=== PATIENT | female | born 1985 | race Caucasian/White ===

== ENCOUNTER → 2018-11-21 08:52 | Outpatient (CLI) | payer OTHER, SELFPAY ==
[2018-11-21 08:23] VITALS: BMI 35.2
[2018-11-21 09:21] LABS: Absolute Lymphocyte Count 1.32 X10^3/uL (0.83-4.51); Absolute Neutrophil Count 5.2 X10^3/uL (2.0-7.7); Basophil# 0.01 X10^3/uL; Basophil% 0.1 % (0-1); Eosinophil# 0.03 X10^3/uL; Eosinophils% 0.4 % (0-5); Hematocrit 36.9 % (37-47); Hemoglobin 12.1 g/dL (12.0-15.0); Lymphocyte # 1.32 X10^3/ul (4.0); Lymphocyte % 18.9 % (19-41); Mean Corp Hgb Conc 32.8 g/dL (32-36); Mean Corpuscular Hgb 29.4 pg (27.0-32.0); Mean Corpuscular Volume 89.8 fL (81-99); Mean Platelet Vol. 10.1 fl (6.2-12.0); Monocyte# 0.37 X10^3/uL; Monocyte% 5.3 % (0-10); NRBC Flagged by Analyzer 0 % (0-5); Neutrophil # 5.23 X10^3/uL (2.7-7.7); Neutrophil % 74.9 % (47-70); Platelet Count 186 K/mm3 (150-450); RBC Distribution Width CV 12.4 % (11.6-14.6); RBC Distribution Width SD 40.8 fl (35.1-43.9); Red Blood Count 4.11 M/mm3 (4.2-5.4)
[2018-11-21 09:30] LABS: Glucose Challenge Gest 1H 50g 146 mg/dL (70-140)
== END ==
PROVIDERS: Family Provider Family Medicine; PCP Family Medicine; Referring Provider Obstetrics & Gynecology; Visit Provider Obstetrics & Gynecology
DX: Z34.90 Encounter for supervision of normal pregnancy, unspecified, unspecified trimester (principal)
CPT/HCPCS: 36415; 82950; 85025

== ENCOUNTER → 2018-11-28 09:48 | Outpatient (CLI) | payer OTHER, SELFPAY ==
[2018-11-21 08:23] VITALS: BMI 35.2
[2018-11-28 11:51] LABS: Glucose GTT-Gestation. Fasting 76 mg/dL (<105)
[2018-11-28 11:51] LABS: Glucose GTT-Gestational 1 Hr 163 mg/dL (<190)
[2018-11-28 13:02] LABS: Glucose GTT-Gestational 2 Hr 165 mg/dL (<165)
[2018-11-28 13:39] LABS: Glucose GTT-Gestational 3 Hr 154 L (<145)
== END ==
PROVIDERS: Family Provider Family Medicine; PCP Family Medicine; Referring Provider Obstetrics & Gynecology; Visit Provider Obstetrics & Gynecology
DX: O99.810 Abnormal glucose complicating pregnancy (principal); Z3A.00 Weeks of gestation of pregnancy not specified
CPT/HCPCS: 36415; 82951; 82952

== ENCOUNTER 2018-12-22 15:30 | Outpatient (RCR) | payer OTHER, SELFPAY ==
[2018-12-05 12:10] VITALS: BMI 35.2
== END 2018-12-29 23:59 ==
LOC: DC 15:30
PROVIDERS: Family Provider Family Medicine; PCP Family Medicine; Visit Provider Obstetrics & Gynecology
DX: O24.419 Gestational diabetes mellitus in pregnancy, unspecified control (principal)
CPT/HCPCS: 97802; G0108

== ENCOUNTER → 2018-12-26 11:56 | Outpatient (CLI) | payer OTHER, SELFPAY ==
[2018-12-05 12:10] VITALS: BMI 35.2
[2018-12-19 11:06] VITALS: BMI 35.2
--- NOTE | 2018-12-26 11:58 | US_ITS ---
STUDY: SECOND AND THIRD TRIMESTER OBSTETRICAL ULTRASOUND REASON FOR EXAM: Female, 33 years old , gestational diabetes LMP: 05/05/2018 TECHNIQUE: Transabdominal TECHNICAL QUALITY: Adequate. PRIOR ULTRASOUND: None. FINDINGS: There is a single intrauterine fetus. The fetus is in a cephalic presentation. There is demonstrated cardiac activity with a heart rate of 136 bpm. There is a normal amniotic fluid volume. The largest amniotic fluid pocket measures 7.4 cm. The amniotic fluid index (JONES) is 19.2 cm. The placenta is posterior in location and is not low lying. There are Grade 1 placental changes. The cervix measures 3.7 cm in length. The adnexal regions are not visualized. BIOMETRY: BPD: 8.5 cm: 34 weeks, 2 days HC: 30.9 cm: 34 weeks, 4 days AC: 29.5 cm: 33 weeks, 4 days FL: 6.5 cm: 33 weeks, 4 days CI: 79% FL/BPD: 77% FL/HC: FL/AC: 22% HC/AC: 1.05 age by current US: 34 weeks, 0 days. ISACC by current US: 02/06/2019. Estimated weight: 2256 grams, +/- 329 grams, 46 %. Age by LMP: 33 weeks, 4 days. ISACC by LMP: 02/09/2019. US/OB Limited With Biometrics IMPRESSION: Living intrauterine of 34 weeks 0 days as described above. Electronically Signed: Cristofer Omer MD at 13:38 EDT Tel , Service support ,
== END ==
LOC: US 11:57
PROVIDERS: Family Provider Family Medicine; PCP Family Medicine; Referring Provider Obstetrics & Gynecology; Visit Provider Obstetrics & Gynecology
DX: O24.419 Gestational diabetes mellitus in pregnancy, unspecified control (principal); Z3A.00 Weeks of gestation of pregnancy not specified
CPT/HCPCS: 76816

== ENCOUNTER 2019-01-05 16:30 | Outpatient (RCR) | payer OTHER, SELFPAY ==
[2018-12-19 11:06] VITALS: BMI 35.2
[2019-01-02 08:12] VITALS: BMI 35.2
== END 2019-01-05 23:59 | disposition home or self-care (01) ==
LOC: NS 16:30
PROVIDERS: Family Provider Family Medicine; PCP Family Medicine; Visit Provider Obstetrics & Gynecology
DX: O24.419 Gestational diabetes mellitus in pregnancy, unspecified control (principal)

== ENCOUNTER 2019-01-08 09:25 | Outpatient (CLI) | payer OTHER, SELFPAY ==
[2019-01-02 08:12] VITALS: BMI 35.2
[2019-01-08 10:18] LABS: ROM Internal Control Test YES-OK TO RESULT pt. (Internal QC); ROM Patient Test Negative (Negative); Record Kit Lot#, ROM+ J8255
[2019-01-08 10:33] VITALS: BMI 33.6
[2019-01-08 12:54] LABS: Group B Strep DNA By PCR Negative (Negative); Internal Control PASS; Probe Check PASS; Specimen Processing Control PASS
--- NOTE | 2019-01-21 21:37 | OB.TRI.PN ---
Progress Notes Date of Service: 01/08/19 Progress Note: Patient presents for triage evaluation secondary to possible rupture membranes FHT: 140 moderate variability reactive no decelerations category I tracing Sam [place]: No regular contractions Assessment and plan: Possible rupture of membranes false labor negative ROM plus reactive NST, reassuring maternal and status patient discharged to home to follow-up as scheduled. See problem list details for additional plan information. Laboratory Studies: Laboratory Tests 01/08/19 01/08/19 Range/Units 09:45 09:45 Vag Amniotic Fld Detect Negative (Negative) Group B Strep DNA Negative (Negative) Specimen Comment Not Reportable Multi Select Codes - Urinary/Genital Urinary/Genital CPT Codes: 04945-60 non-stress test Interp
== END 2019-01-08 10:50 | disposition home or self-care (01) ==
LOC: WPOUT 09:30 → OBT 09:31
PROVIDERS: Family Provider Family Medicine; PCP Family Medicine; Referring Provider Obstetrics & Gynecology; Visit Provider Obstetrics & Gynecology
DX: O47.9 False labor, unspecified (principal); Z3A.00 Weeks of gestation of pregnancy not specified
CPT/HCPCS: 59025; 59050; 84112; 87081; 87653; 99218; G0378

== ENCOUNTER → 2019-01-21 14:28 | Outpatient (CLI) | payer OTHER, SELFPAY ==
[2019-01-16 08:37] VITALS: BMI 33.6
--- NOTE | 2019-01-21 14:30 | US_ITS ---
STUDY: SECOND AND THIRD TRIMESTER OBSTETRICAL ULTRASOUND REASON FOR EXAM: Female, 33 years old growth. LMP: Unknown. TECHNIQUE: Transabdominal TECHNICAL QUALITY: Adequate. PRIOR ULTRASOUND: 12/26/2018. FINDINGS: There is a single intrauterine fetus. The fetus is in a cephalic presentation. There is demonstrated cardiac activity with a heart rate of 124 bpm. There is a normal amniotic fluid volume. The largest amniotic fluid pocket measures 5.5 cm. The amniotic fluid index (JONES) is 11.6 cm. The placenta is fundal and slightly posterior in location. Placenta is not low lying. There are Grade 1 placental changes. The cervix measures 3.3 cm in length. The cervix is closed. The adnexal regions are not visualized. BIOMETRY: BPD: 9.25 cm: 37 weeks, 5 days HC: 33.56 cm: 38 weeks, 3 days AC: 33.63 cm: 37 weeks, 4 days FL: 7.24 cm: 37 weeks, 1 days CI: 82 FL/BPD: 78 FL/AC: 22 HC/AC: 1.0 age by current US: 37 weeks, 5 days. ISACC by current US: 02/06/2019. Estimated weight: 3236 grams, +/- 472 grams, 65 %. age by prior US: 37 weeks, 5 days. ISACC by prior US: 02/06/2019. Age by LMP: 37 weeks, 2 days. ISACC by LMP: 02/09/2019. ANATOMY: anatomy is limited due to advanced gestation. In addition, a some is not dedicated to evaluate anatomy. Note to be made that there is visualization of distention of the left renal pelvis up to 8mm. No other distinct anatomical abnormality seen. US/OB Limited With Biometrics IMPRESSION: Single intrauterine gestation with ultrasound age of 37 weeks and 5 days and estimated date of delivery of 02/06/2019. Vertex presentation. Fundal and posterior placenta with no previa. Normal amniotic fluid. Normal cardiac activity. Normal cervix. Enlargement of the left renal pelvis. Follow-up ultrasound recommended including the period recommended to evaluate for left hydronephrosis. Electronically Signed: Nicol Callahan MD at 4:20 EDT , Service support ,
== END ==
LOC: US 14:29
PROVIDERS: Family Provider Family Medicine; PCP Family Medicine; Referring Provider Obstetrics & Gynecology; Visit Provider Obstetrics & Gynecology
DX: O24.419 Gestational diabetes mellitus in pregnancy, unspecified control (principal); Z3A.00 Weeks of gestation of pregnancy not specified
CPT/HCPCS: 76816

== ENCOUNTER 2019-02-05 09:35 | Inpatient (IN) | payer OTHER, SELFPAY ==
[2019-01-23 08:11] VITALS: BMI 33.6
[2019-01-30 08:10] VITALS: BMI 33.6
--- NOTE | 2019-01-31 04:45 | HP.PCM_ITS ---
- Problem List (1) Abnormal ultrasound Status: Acute Comment: Enlarged left renal pelvis. Referred to [facility] for US (2) Cholelithiasis Status: Acute Qualifiers: Comment: s/p gen surg consult, no surgical intervention recommended at this time. patient symptomatic but controls with diet (3) Gestational diabetes Status: Acute Qualifiers: Comment: BS well controlled. diet only. growth us q 4 weeks (4) History of delivery Status: Acute Comment: desires TOLAC- 62% likelihood of success, plan RLTCS 02/06 (5) Status: Acute Qualifiers: Comment: genetic, carrier, and ntd screening declined. us reviewed. 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 Physical Date of Admission: 02/05/19 Intake Vital Signs 01/30/19 Body Mass Index (BMI) 33.6 01/30/19 Height 5 ft 3 in 01/30/19 Weight: 207 lb 4 oz 01/30/19 Body Mass Index (BMI) 36.7 01/30/19 Blood Pressure 126/80 H Intake Visit Reasons: 38 WEEK OB Certified Performance Technologist Required: No Is patient in pain?: No Allergies amoxicillin [Amoxicillin] Allergy (Verified 01/30/19 08:03) Hives Penicillins Allergy (Verified 01/30/19 08:03) Hives Medications doxylamine succinate 25 mg tablet 25 mg PO QHS 10/17/18 [History Confirmed 01/30/19] pyridoxine (vitamin B6) 50 mg capsule 50 mg PO TID cap 10/17/18 [History Confirmed 01/30/19] vitamin,calcium,jwkeoujb-oqsn-uqpiv acid tablet 1 tab PO DAILY 10/27/18 [History Confirmed 01/30/19] ondansetron HCl 4 mg tablet 4 mg PO Q4H #60 tab 11/21/18 [Rx Confirmed 01/30/19] doxylamine 10 mg-pyridoxine (vit B6) 10 mg tablet,delayed release 1 tab PO DAILY #30 tab 12/05/18 [Rx Confirmed 01/30/19] Vitamin B6 PO DAILY 01/08/19 [History Confirmed 01/30/19] Last Menstral Period: 05/05/18 Zika: Zika virus screening: Negative : No PFSH PFSH Medical History Cardiac murmur (Acute) Gallstones (Acute) History of gestational diabetes (Acute) Surgical History History of section (Acute ~2010) History of section (Acute ~2013) Family History Mother Diabetes Father Hypertension Social History (Updated 01/30/19 @ 08:33 by Dixie Swan MD) Smoking Status: Never smoker alcohol intake: never substance use type: does not use caffeine: Yes what type of physical activity do you participate in: walking seatbelt use: always do you feel safe at home: Yes additional social history: [employer] for [employer] Patient works for [employer] Pregancy History 3 Elective abortions Hx Para 2 Spontaneous abortions Hx # Term Pregnancies Ectopic pregnancies Hx # Pregnancies Multiple births # of living children Past Pregnancies Del. Date Name GA/Weeks Outcome Route Bth Weight Infant Gen Labor Lgth Anesthes ia Del Locatn Provider FOB Unknown 2010 [place] 39 live - full term 7lbs 2oz [facility] Dr. Ferro Unknown 2013 Pierre 39 live - full term 7lbs 4oz [facility] Dr. Aleman Delivery Date: On 10/27/18 @ 15:16 Francoise Adams distress- emergency c/s Delivery Date: On 10/27/18 @ 15:16 Francoise Adams scheduled c/s HPI 38 WEEK OB: Details: MELIDA CONNER is a 33 year old who presents for routine OB visit. OB Visit ISACC Calculator Estimated Delivery Date Method Current WG Current Estimate 02/09/19 LMP (Certain) 38w 4d Expected Delivery Route/Plan h/o cs x 2- desires TOLAC if able patient counseled regarding risks/benefits of trial of labor versus repeat . ACOG and uptodate education given to patient. 62 % likelihood of success per calculator TOLAC consent form signed: yes Labor Preferences- labor support person: Akin pain management options preferred: epidural cut cord/dad catch: yes : yes PP control planned: pill discussed possible routes of delivery and associated risks: [] special requests: [] Specific Issue/Plans flu vaccine: given tdap vaccine: given rhogam: na LARC form signed: declines movement and labor precautions reviewed. Problem list reviewed and updated with the most current plan of care details and appropriate orders placed. Relevant counseling for the gestational age provided. Continue routine care and follow up unless otherwise noted in visit notes/problem list details Initial Weight: 190 lb Date EGA Weight BP Urine Prot Glucose FHR FuHt Pres Mov CTX Dilation Effaced St Visit Note 10/27/18 25w 0d 193 lb (+3 lb) 124/82 Negative Negative 150 no vb lof good fm no regular ctx. 11/21/18 28w 4d 194 lb 4 oz (+4 lb 4 oz) 98/74 Trace Negative 140 no vb lof good fm n oregular ctx still having signficaint gall bladder attacks every ther day,very limited diet. on unisom for nauea will try zofran too, saw gen surg, will discuss therapy options 12/05/18 30w 4d 192 lb (+2 lb) 126/82 Negative Negative 145 34 Active absent no vb lof diagnosed with GDM- getting supplies. still having nausea and gall bladder issues, concerned about now being diabetic 12/19/18 32w 4d 196 lb 4 oz (+6 lb 4 oz) 122/76 Negative Negative 132 36 Active absent BS >50% WNL. Some nausea. Good FM. No VB, LOF 01/02/19 34w 4d 200 lb (+10 lb) 112/80 Negative Negative 130 40 no vb lof good fm no reg ctx. bs well controlled 01/16/19 36w 4d 200 lb 8 oz (+10 lb 8 oz) 112/78 Negative Negative 145 38 Cephalic Declined internal exam. Good FM. No VB, LOF. BS >50% WNL 01/23/19 37w 4d 203 lb (+13 lb) 108/76 Negative Negative 140 40 Cephalic no vb lof good fm no reg ctx some blood sugars eelvated all fastings within goal 01/30/19 38w 4d 207 lb 4 oz (+17 lb 4 oz) 126/80 Negative Negative 130 41 Cephalic no vb lof good fm bs well controlled plan RLTCS next week Visit Notes Visit Date: 01/30/19 ??no vb lof good fm bs well controlled plan RLTCS next week ??Dixie Swan MD on 01/30/19 Visit Date: 01/23/19 ??no vb lof good fm no reg ctx some blood sugars eelvated all fastings within goal ??Dixie Swan MD on 01/23/19 Visit Date: 01/16/19 ??Declined internal exam. Good FM. No VB, LOF. BS >50% WNL ??Veronica Grajeda NP-C on 01/16/19 Visit Date: 01/02/19 ??no vb lof good fm no reg ctx. bs well controlled ??Dixie Swan MD on 01/02/19 Visit Date: 12/19/18 ??BS >50% WNL. Some nausea. Good FM. No VB, LOF ??Veronica Grajeda NP-C on 12/19/18 Visit Date: 12/05/18 ??no vb lof diagnosed with GDM- getting supplies. still having nausea and gall bladder issues, concerned about now being diabetic ??Dixie Swan MD on 12/06/18 Visit Date: 11/21/18 ??no vb lof good fm n oregular ctx still having signficaint gall bladder attacks every ther day,very limited diet. on unisom for nauea will try zofran too, saw gen surg, will discuss therapy options ??Dixie Swan MD on 11/21/18 Visit Date: 10/27/18 ??no vb lof good fm no regular ctx. ??Dixei Swan MD on 10/27/18 ACOG First Trimester First Trimester: Desire for , Alcohol, Tobacco Cessation, Illicit/Recreational Drug/Substance Use, Intimate Partner Violence, Barriers to care, Unstable Housing, Communication Barriers, Environmental/Work Hazards, Anticipated Course of Care, Toxoplasmosis Precations, Use of Any medica tions, Sexual activity, Exercise, Dental Care, Sauna/Hot tub use, Seat Belt use, Childbirth classes/Hospital facilities, , Travel, Indications for US and Screening for Aneuploidy Second Trimester Second Trimester: Signs and Symptoms of Labor, Selecting a care provider, Reproductive Life Planning, Care Planning, Tobacco Cessation, Depression/Anxiety and Intimate Partner Violence Third Trimester Third Trimester: Pain Management Plans, Labor support person(s), Immediate Larc, Movement Monitoring and Infant Feeding Yes ; discussed Trial of Labor after Counseling or discussed Circumcision preference Diagnostics Diagnostics Diagnostics Gest Glucose Tolerance MG/DL 11/28/18 Glucose 1 Hr 50 gm 146 mg/dL (70-140) H 11/21/18 Group B Strep DNA Negative (Negative) 01/08/19 Hgb 12.1 g/dL (12.0-15.0) 11/21/18 Hct 36.9 % (37-47) L 11/21/18 Details: HIV: Urine Culture: Sequential Screen: NIPT Screen: ROS Const Reports system reviewed and no additional complaints, except as docu Card Reports system reviewed and no additional complaints, except as docu Resp Reports system reviewed and no additional complaints, except as docu GI Reports system reviewed and no additional complaints, except as docu, Reports nausea Reports system reviewed and no additional complaints, except as docu Musc Reports system reviewed and no additional complaints, except as docu Exam Const General: cooperative, healthy appearing, comfortable, anxious [facility] Head: normal to inspection Nose: external nose normal Face and sinus: normal facial exam Neck Neck: normal visual inspection, full ROM, no lymphadenopathy Thyroid: thyroid normal Chest Chest palpation & inspection: normal inspection of the chest Resp Effort & Inspection: normal respiratory effort GI Inspection: normal to inspection Palpation: soft, other (gravid uterus) Other: vertex and appropriate size for gestational age Other: Cervical Exam: Extrem General: pedal edema Results [id number] Office Urine Glucose Negative Last Edit by Melida Larson on 01/30/19 08:12 Office Urine Protein Negative Last Edit by Melida Larson on 01/30/19 08:12 Assessment & Plan Problems 1. Abnormal ultrasound O28.3 Enlarged left renal pelvis. Referred to [facility] for US 2. Diet controlled gestational diabetes mellitus (GDM) in third trimester O24.410 BS well controlled. diet only. growth us q 4 weeks 3. Calculus of gallbladder with cholecystitis without biliary obstruction, unspecified cholecystitis acuity K80.10 s/p gen surg consult, no surgical intervention recommended at this time. patient symptomatic but controls with diet 4. 38 weeks gestation of Z3A.38 genetic, carrier, and ntd screening declined. us reviewed. 5. History of delivery Z98.891 desires TOLAC- 62% likelihood of success, plan RLTCS 02/06 6. 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 Plan plan RLTCS Orders Orders: POC Urinalysis 2 Dip (Clinic) Today Coding Level of Care Code OB Routine Diagnoses Abnormal ultrasound O28.3 Diet controlled gestational diabetes mellitus (GDM) in third trimester O24.410 ??Gestational diabetes mellitus control: diet-controlled ??Trimester: third trimester Calculus of gallbladder with cholecystitis without biliary obstruction, unspecified cholecystitis acuity K80.10 ??Biliary obstruction: without biliary obstruction ??Cholecystitis acuity: unspecified acuity ??Cholecystitis presence: with cholecystitis ??Cholelithiasis location: gallbladder 38 weeks gestation of Z3A.38 ??Weeks of gestation: 38 weeks History of delivery Z98.891 Encounter for supervision of other normal in second trimester Z34.82 ??Normal : other normal ??Trimester: second trimester
[2019-02-05] VITALS (20 sets, daily range): BP systolic 104–146; BP diastolic 50–89; PULSE 62–98; RESP 16–17; TEMP 36.2–36.8; O2SAT 96–100; BMI 36.0
[2019-02-05] MEDS: Lactated Ringers 1,000 ML 999 ML IV (10:22)
[2019-02-05 10:48] LABS: Absolute Lymphocyte Count 2.01 X10^3/uL (0.83-4.51); Absolute Neutrophil Count 8.3 X10^3/uL (2.0-7.7); Basophil# 0.03 X10^3/uL; Basophil% 0.3 % (0-1); Eosinophil# 0.02 X10^3/uL; Eosinophils% 0.2 % (0-5); Hematocrit 38.3 % (37-47); Hemoglobin 12.6 g/dL (12.0-15.0); Lymphocyte # 2.01 X10^3/ul (4.0); Mean Corp Hgb Conc 32.9 g/dL (32-36); Mean Corpuscular Hgb 27.9 pg (27.0-32.0); Mean Corpuscular Volume 84.9 fL (81-99); Mean Platelet Vol. 11.2 fl (6.2-12.0); Monocyte% 7.2 % (0-10); NRBC Flagged by Analyzer 0 % (0-5); Neutrophil # 8.25 X10^3/uL (2.7-7.7); Neutrophil % 73.7 % (47-70); Platelet Count 218 K/mm3 (150-450); RBC Distribution Width CV 13.1 % (11.6-14.6); RBC Distribution Width SD 40.1 fl (35.1-43.9); Red Blood Count 4.51 M/mm3 (4.2-5.4); White Blood Count 11.2 K/mm3 (4.4-11.0)
[2019-02-05] MEDS: Lactated Ringers 1,000 ML 150 ML IV (11:16)
[2019-02-05] MEDS: Sodium Citrate/Citric Acid 30 ML UDC PO (11:51)
[2019-02-05] MEDS: Ondansetron 4 MG/2 ML Vial IV (12:09)
[2019-02-05] MEDS: Oxytocin 30 units/NS 500 ml 30 UNITS/500 ML IV.SOLN 167 UNITS IV (13:20)
[2019-02-05 13:51] LABS: Bedside Glucose 94 mg/dL (70-110)
[2019-02-05] MEDS: Methylergonovine 0.2 MG/ML Ampul IM (15:10)
[2019-02-05] MEDS: Lactated Ringers 1,000 ML 100 ML IV (16:14)
[2019-02-05] MEDS: Ketorolac 30 MG/ML Syringe IV (17:49)
--- NOTE | 2019-02-05 21:55 | PCM.OPRPT ---
Problem List (1) Abnormal ultrasound Status: Acute Comment: Enlarged left renal pelvis. UTD A1 unilateral pyelectasis. (2) Cholelithiasis Status: Acute Qualifiers: Comment: s/p gen surg consult, no surgical intervention recommended at this time. patient symptomatic but controls with diet (3) Gestational diabetes Status: Acute Qualifiers: Comment: BS well controlled. diet only. growth us q 4 weeks (4) History of delivery Status: Acute Comment: desires TOLAC- 62% likelihood of success, plan RLTCS 02/06 (5) Status: Acute Qualifiers: Comment: genetic, carrier, and ntd screening declined. us reviewed. 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 Murphy catheter was placed. The patient was placed in the dorsal supine position with leftward tilt. Patient was prepped and draped in the normal sterile fashion. Pfannenstiel skin incision was made with the scalpel and carried through to the underlying layer of fascia with the scalpel. Fascia was nicked in the midline and the incision extended laterally. The rectus bellies were dissected off superiorly and inferiorly with out complication both sharply and bluntly. The peritoneum was entered digitally. The incision was stretched and a low transverse uterine incision was made with the scalpel. The infant's head was delivered atraumatically followed by the anterior and posterior shoulders without complication the rest of the infant delivered. The cord was clamped and cut and the was handed off to awaiting nurse. The placenta was delivered spontaneously immediately following and was noted to be intact and have a three-vessel cord. The uterus was exteriorized cleared of all clots and debris, and the incision was closed in a double layer closure using #1 Monocryl. The ovaries and fallopian tubes were noted to be within normal limits. The uterus was returned to the maternal abdomen and gutters were cleared of all clots and debris. The peritoneum was closed with 3-0 Monocryl in a running fashion. Gloves were changed prior to fascial closure. Fascia was closed with 0 PDS in a running fashion. Subcutaneous tissue was copiously irrigated and the skin was closed with 3-0 Monocryl in a subcuticular fashion. Mepilex dressing was applied without complication. Patient was taken to recovery in stable condition. It was discussed with the patient that based on the clinical information obtained during this encounter, combined with her history, at this time I would recommend csections for future deliveries if further pregnancies are desired. Amniotic Membrane Rupture Type: Artificial Amniotic Fluid Description: Clear Placenta Disposition: [facility] Specimen(s) sent to pathology: none Drain: Murphy to straight drain Cord Entanglement: None Cord Vessel Description: 3 Vessels Esitmated Blood Loss (ml): 500 Gender: Male Delayed cord clamping: Yes Antibiotic Given: Ancef 2 grams IV x1 Pt instructed on risks of surgery: Bleeding, Anesthesia Risks, Infection, Injury to surrounding structure(s) including bowel and bladder - Admit VTE Documentation VTE Present on Admission: No VTE Mechan Device Prophylaxis: SCD's VTE Pharm Prophylaxis ordered?: No Multi Select Codes - Urinary/Genital Urinary/Genital CPT Codes: [address] [facility]
--- NOTE | 2019-02-05 22:28 | DCINST_ITS ---
Discharge Diet: No Restrictions Discharge Activity: May Not Drive - for 2 weeks, May not drive while taking narcotic pain medications., May Shower, May Take a Tub Bath - in 7 days May resume sexual activity in: 4-6 weeks Lifting Restrictions: 20 pounds Additional Activity Instructions:: Nothing in the vagina for 4-6 weeks. You may return to work/school in 6 weeks. Call your doctor if your incision/area has: Continuous Slow Oozing, Sudden Increased Bleeding, Increased Pain/ Swelling, Increased Redness, Foul Smelling Discharge Call your doctor if you observe: Fever of 101 or Higher, Using more than one pad per hour - for 2 hours Suture Line Care: Avoid Pulling/Pushing, Avoid Pinching/Bending Cleanse incision/area with: Keep Dressing Clean & Dry Additional Instructions: If you experience any of the following, contact your healthcare provider. * Bleeding that soaks a pad every hour for 2 hours * Fever 100.4 or higher * Unrelieved incision or abdominal pain * Swelling, redness, discharge or bleeding from your incision or episiotomy site * Your incision begins to separate * Problems urinating (including inability to urinate or burning while urinating). * Visual changes * Severe headache * Flu-like symptoms * Pain or redness in one of both of your breasts * Pain, warmth, tenderness or swelling in your legs, especially the calf area * Frequent nausea and vomiting * Symptoms of depression or anxiety If you experience any of the following, call 911 or go to the nearest Emergency Room. * Chest pain * Problems breathing * Seizure activity * Partial or complete paralysis of a body part, slurred speech, weakness or drooping of the face, or a sudden inability to walk or hold your balance Allergies/Adverse Reactions: Allergies amoxicillin [Amoxicillin] Allergy (Verified 01/30/19 08:03) Hives Penicillins Allergy (Verified 01/30/19 08:03) Hives Medications to take at Discharge Vitamin B6 50 mg PO DAILY 01/08/19 Naproxen [Naprosyn] 250 - 500 mg PO Q8H PRN PRN #30 tab 02/05/19 Oxycodone HCl/Acetaminophen [Percocet 5-325] 1 - 2 tablet PO Q6H PRN PRN 7 Days #15 tablet 02/05/19 The following prescriptions were given: Naproxen [Naprosyn] 250 - 500 mg PO Q8H PRN PRN #30 tab PRN Reason: MILD PAIN Transmission Status: Pending to [id number] Oxycodone HCl/Acetaminophen [Percocet 5-325] 1 - 2 tablet PO Q6H PRN PRN 7 Days #15 tablet PRN Reason: Pain Transmission Status: Sent to [id number] Follow-Up: Call to make an appointment with your doctor for an incision check in 1-2 weeks. You will also need a 6 week post- follow up appointment. Test results from this visit will be discussed in further detail at your follow- up appointment, if applicable. Please Follow Up With: Dixie Swan MD - Call to make an appointment for an incision check in 1-2 [phone] When: You will need a post- check in 6 weeks. Primary Care Physician: Gary Stevens MD [Primary Care Provider] -
[2019-02-06] VITALS (8 sets, daily range): BP systolic 116–139; BP diastolic 65–83; PULSE 79–101; RESP 16–18; TEMP 36.2–37.3; O2SAT 96–98
[2019-02-06] MEDS: Ketorolac 30 MG/ML Syringe IV ×3 (00:20→13:48)
[2019-02-06] MEDS: 0.9% Saline Lock 10 ML Syringe IV ×2 (00:20→06:26)
[2019-02-06 06:43] LABS: Hematocrit 35.7 % (37-47); Hemoglobin 11.6 g/dL (12.0-15.0); Mean Corp Hgb Conc 32.5 g/dL (32-36); Mean Corpuscular Hgb 27.8 pg (27.0-32.0); Mean Corpuscular Volume 85.6 fL (81-99); Mean Platelet Vol. 10.6 fl (6.2-12.0); Platelet Count 152 K/mm3 (150-450); RBC Distribution Width CV 13.1 % (11.6-14.6); Red Blood Count 4.17 M/mm3 (4.2-5.4)
[2019-02-06 07:30] LABS: Bedside Glucose 86 mg/dL (70-110)
--- NOTE | 2019-02-06 08:28 | PN.OBGYN_ITS ---
Subjective: doing well no complaints pain controlled no CP SOB N V ambulating well tolerating po lochia moderate, going well - Physical Exam Vitals/I&O's: Vital Signs Temp Pulse Resp BP Pulse Ox 97.2 F L 101 H 18 133/68 H 98 02/05/19 21:00 02/06/19 06:15 02/06/19 06:15 02/06/19 04:00 02/06/19 06:15 Oxygen Delivery Method Room Air Weight: 203 lb 7.787 oz Body Mass Index (BMI) 36.0 Intake and Output for Last 24 Hours 02/04/19 02/05/19 02/06/19 23:59 23:59 23:59 Intake Total 3059.37 / 3059.37 1900 / 1900 Output Total 2250 / 2250 1700 / 1700 Balance 809.37 / 809.37 200 / 200 General: Oriented x3 Abdomen: Soft, Non-Distended, - - FF below U. Dressing dry and intact Laboratory Results 02/05/19 10:15: WBC 11.2 H, RBC 4.51, Hgb 12.6, Hct 38.3, MCV 84.9, MCH 27.9, MCHC 32.9, RDW Std Deviation 40.1, RDW Coeff of Corey 13.1, Plt Count 218, MPV 11.2, Immature Gran % (Auto) 0.600, Neut % (Auto) 73.7 H, Lymph % (Auto) 18.0 L, [place] % (Auto) 7.2, Eos % (Auto) 0.2, Baso % (Auto) 0.3, Absolute Neuts (auto) 8.3 H, Absolute Lymphs (auto) 2.01, Nucleated RBC % 0 02/05/19 10:15: Blood Type AB POSITIVE, Antibody Screen NEGATIVE 02/05/19 13:43: POC Glucose 94 02/06/19 06:30: WBC 11.0, RBC 4.17 L, Hgb 11.6 L, Hct 35.7 L, MCV 85.6, MCH 27.8, MCHC 32.5, RDW Std Deviation 40.0, RDW Coeff of Corey 13.1, Plt Count 152, MPV 10.6 02/06/19 07:15: POC Glucose 86 Current Medications Acetaminophen (Tylenol) 1,000 mg PO Q8H PRN PRN Reason: Pain Score 1-3/10 Bisacodyl (Dulcolax) 10 mg RECTAL UD PRN PRN Reason: If no BM Dextrose (D50w Syringe) 0 gm IV X1 PRN; Protocol PRN Reason: Hypoglycemia Diphenhydramine HCl (Benadryl) 25 mg PO Q6H PRN PRN PRN Reason: ITCHING Stop: 02/06/19 13:37 Glucagon () 1 mg IM .X1 PRN PRN Reason: Hypoglycemia Hydrocortisone (Hytone) 1 applic TOPICAL TID PRN PRN; Protocol PRN Reason: Discomfort Naloxone HCl 4 mg/ Dextrose 504 mls @ 0 mls/hr IV .Q0M PRN; Protocol PRN Reason: Respiratory depression Naloxone HCl 4 mg/ Dextrose 504 mls @ 0 mls/hr IV .Q0M PRN; Protocol PRN Reason: To maintain Resp. rate >10 Ketorolac Tromethamine (Toradol) 30 mg IV Q6 LUIS Stop: 02/07/19 12:01 Last Admin: 02/06/19 06:26 Dose: 30 mg Documented by: Methylergonovine Maleate (Methergine) 0.2 mg IM X1 PRN PRN Reason: Uterine Atony Last Admin: 02/05/19 15:10 Dose: 0.2 mg Documented by: Nalbuphine HCl (Nubain) 5 mg IV Q3H PRN PRN PRN Reason: ITCHING Stop: 02/06/19 13:37 Naloxone HCl (Narcan) 0.02 mg IV Q1M PRN PRN Reason: RR <10 and pt unresponsive Naproxen (Naprosyn) 250 - 500 mg PO Q8H PRN PRN PRN Reason: Pain Score 1-3/10 Ondansetron HCl (Zofran) 4 mg IV Q4H PRN PRN PRN Reason: Nausea Last Admin: 02/05/19 12:09 Dose: 4 mg Documented by: Oxycodone HCl (Oxyir) 5 - 10 mg PO Q4H PRN PRN PRN Reason: Pain Score 4-10/10 Prochlorperazine Edisylate (Compazine Iv) 10 mg IV Q6H PRN PRN PRN Reason: NAUSEA Senna/Docusate Sodium (Senokot-S, Ira-Colace) 0 tablet PO DAILY PRN PRN Reason: Constipation Simethicone (Mylicon) 80 mg PO PCHS PRN PRN Reason: Indigestion/stomach pain Sodium Chloride () 5 - 15 ml IV UD PRN PRN Reason: SALINE FLUSH Last Admin: 02/06/19 06:26 Dose: 10 ml Documented by: Medical Necessity - Tobacco Use Smoking Status: Never smoker Assessment/Plan All Active Problems (Last Reviewed 01/30/19 @ 08:03 by Melida Larson) Abnormal ultrasound (Acute) Gestational diabetes (Acute) Cholelithiasis (Acute) (Acute) History of delivery (Acute) Supervision of normal (Acute) s/p LTCS PPD # 1 1. routine post care 2. breast feeding- support given 3. rh positive 4. rubella immune 5. GDM-blood glucose WNL
[2019-02-06] MEDS: Naproxen 250 MG Tablet PO (20:29)
[2019-02-06] MEDS: oxyCODONE 5 MG Tablet PO (21:07)
[2019-02-06] MEDS: Senna/Docusate Sodium 1 Tablet PO (21:07)
[2019-02-06] MEDS: Acetaminophen 500 MG Tablet 1000 MG PO (22:36)
[2019-02-07 01:08] VITALS: BP 124/72; PULSE 85; RESP 17; TEMP 36.9; O2SAT 98
[2019-02-07] MEDS: oxyCODONE 5 MG Tablet PO ×3 (01:33→10:01)
[2019-02-07] MEDS: Naproxen 250 MG Tablet PO (05:12)
[2019-02-07] MEDS: Senna/Docusate Sodium 1 Tablet PO (05:40)
[2019-02-07 08:00] VITALS: BP 127/77; PULSE 83; RESP 16; TEMP 36.8
--- NOTE | 2019-02-07 09:08 | PCM.PN.OB ---
Subjective: doing well no complaints pain controlled no CP SOB N V ambulating well tolerating po lochia moderate, going well - Physical Exam Vitals/I&O's: Vital Signs Temp Pulse Resp BP Pulse Ox 98.3 F 83 16 127/77 H 98 02/07/19 08:00 02/07/19 08:00 02/07/19 08:00 02/07/19 08:00 02/07/19 01:08 Oxygen Delivery Method Room Air Weight: 203 lb 7.787 oz Body Mass Index (BMI) 36.0 Intake and Output for Last 24 Hours 02/05/19 02/06/19 02/07/19 23:59 23:59 23:59 Intake Total 3059.37 / 3059.37 1900 / 1900 Output Total 2250 / 2250 1700 / 1700 Balance 809.37 / 809.37 200 / 200 General: Alert, Oriented x3 Abdomen: Soft, Non-Distended, - - Dressing dry and intact. FF below U Current Medications Acetaminophen (Tylenol) 1,000 mg PO Q8H PRN PRN Reason: Pain Score 1-3/10 Last Admin: 02/06/19 22:36 Dose: 1,000 mg Documented by: Bisacodyl (Dulcolax) 10 mg RECTAL UD PRN PRN Reason: If no BM Dextrose (D50w Syringe) 0 gm IV X1 PRN; Protocol PRN Reason: Hypoglycemia Glucagon () 1 mg IM .X1 PRN PRN Reason: Hypoglycemia Hydrocortisone (Hytone) 1 applic TOPICAL TID PRN PRN; Protocol PRN Reason: Discomfort Naloxone HCl 4 mg/ Dextrose 504 mls @ 0 mls/hr IV .Q0M PRN; Protocol PRN Reason: Respiratory depression Naloxone HCl 4 mg/ Dextrose 504 mls @ 0 mls/hr IV .Q0M PRN; Protocol PRN Reason: To maintain Resp. rate >10 Methylergonovine Maleate (Methergine) 0.2 mg IM X1 PRN PRN Reason: Uterine Atony Last Admin: 02/05/19 15:10 Dose: 0.2 mg Documented by: Naloxone HCl (Narcan) 0.02 mg IV Q1M PRN PRN Reason: RR <10 and pt unresponsive Naproxen (Naprosyn) 250 - 500 mg PO Q8H PRN PRN PRN Reason: Pain Score 1-3/10 Last Admin: 02/07/19 05:12 Dose: 500 mg Documented by: Ondansetron HCl (Zofran) 4 mg IV Q4H PRN PRN PRN Reason: Nausea Last Admin: 02/05/19 12:09 Dose: 4 mg Documented by: Oxycodone HCl (Oxyir) 5 - 10 mg PO Q4H PRN PRN PRN Reason: Pain Score 4-10/10 Last Admin: 02/07/19 05:39 Dose: 10 mg Documented by: Prochlorperazine Edisylate (Compazine Iv) 10 mg IV Q6H PRN PRN PRN Reason: NAUSEA Senna/Docusate Sodium (Senokot-S, Ira-Colace) 0 tablet PO DAILY PRN PRN Reason: Constipation Last Admin: 02/07/19 05:40 Dose: 1 tablet Documented by: Simethicone (Mylicon) 80 mg PO PCHS PRN PRN Reason: Indigestion/stomach pain Sodium Chloride () 5 - 15 ml IV UD PRN PRN Reason: SALINE FLUSH Last Admin: 02/06/19 06:26 Dose: 10 ml Documented by: Medical Necessity - Tobacco Use Smoking Status: Never smoker Assessment/Plan All Active Problems (Last Reviewed 01/30/19 @ 08:03 by Melida Larson) Abnormal ultrasound (Acute) Gestational diabetes (Acute) Cholelithiasis (Acute) (Acute) History of delivery (Acute) Supervision of normal (Acute) s/p LTCS PPD # 2 1. routine post care 2. breast feeding- support given 3. rh positive 4. rubella immune 5. home today
== END 2019-02-07 10:45 | disposition home or self-care (01) | DRG 787 ==
PROVIDERS: Admitting Provider Obstetrics & Gynecology; Family Provider Family Medicine; PCP Family Medicine; Referring Provider Obstetrics & Gynecology; Visit Provider Obstetrics & Gynecology
PROC: 10D00Z1 Extraction of Products of Conception, Low, Open Approach (ICD-10-PCS; CPT 59514; principal; 2019-02-05 11:45)
DX: O65.5 Obstructed labor due to abnormality of maternal pelvic organs (principal); O34.211 Maternal care for low transverse scar from previous cesarean delivery; O24.420 Gestational diabetes mellitus in childbirth, diet controlled; K80.10 Calculus of gallbladder with chronic cholecystitis without obstruction; O28.3 Abnormal ultrasonic finding on antenatal screening of mother; Z3A.39 39 weeks gestation of pregnancy; Z37.0 Single live birth
CPT/HCPCS: 82962; 85025; 85027; 86850; 86900; 86901; 99218; J7120; A4216; G0378; J2405

== ENCOUNTER → 2019-03-18 15:34 | Outpatient (CLI) | payer OTHER, SELFPAY ==
[2019-03-18 09:10] VITALS: BMI 36.0
[2019-03-23 14:49] LABS: HPV APTIMA, High Risk Negative (Negative)
== END ==
PROVIDERS: Family Provider Family Medicine; PCP Family Medicine; Visit Provider Obstetrics & Gynecology
DX: Z12.4 Encounter for screening for malignant neoplasm of cervix (principal)
CPT/HCPCS: 87624; 88175; G0145

== ENCOUNTER → 2019-03-20 06:59 | Outpatient (CLI) | payer OTHER, SELFPAY ==
[2019-03-18 09:10] VITALS: BMI 36.0
[2019-03-20 08:50] LABS: Thyroid Stim Hormone (TSH) 1.56 uIU/mL (0.358-3.74)
[2019-03-20 10:36] LABS: Glucose 2 Hour Postprandial 107 mg/dL (<140)
== END ==
LOC: LAB 07:00
PROVIDERS: Family Provider Family Medicine; PCP Family Medicine; Referring Provider Obstetrics & Gynecology; Visit Provider Obstetrics & Gynecology
DX: E01.0 Iodine-deficiency related diffuse (endemic) goiter (principal); O24.419 Gestational diabetes mellitus in pregnancy, unspecified control; Z3A.00 Weeks of gestation of pregnancy not specified
CPT/HCPCS: 36415; 82950; 84439; 84443

== ENCOUNTER 2019-03-26 05:37 | Day surgery (SDC) | payer OTHER, SELFPAY ==
[2019-02-17 10:19] VITALS: BMI 36.0
[2019-03-18 09:10] VITALS: BMI 36.0
--- NOTE | 2019-03-26 05:55 | EKG12_ITS ---
Test Reason : PREOP Blood Pressure : / mmHG Vent. Rate : 072 BPM Atrial Rate : 072 BPM P-R Int : 126 ms QRS Dur : 088 ms QT Int : 394 ms P-R-T Axes : 031 046 024 degrees QTc Int : 431 ms Normal sinus rhythm Normal ECG No previous ECGs available Confirmed by RAFAT OSHEA, JESS ([id number]), business editor ARTHUR CLEMENTE ([id number]) on 03/27/2019 10:40:04 AM Referred By: Lyn Kamara Confirmed By:RUPERT DOUGLASS MD
[2019-03-26 06:13] VITALS: BP 120/82; PULSE 84; RESP 16; TEMP 36.6; O2SAT 99; BMI 34.2
[2019-03-26 06:22] LABS: Internal QC Validated? YES +Cl - CLEAR BKGD; Pregnancy, Urine Negative Negative
[2019-03-26] MEDS: Lactated Ringers 1,000 ML 100 ML IV ×2 (06:45→08:15)
--- NOTE | 2019-03-26 07:09 | HP.PCM_ITS ---
History of Present Illness Date of Admission: 03/26/19 The patient is a 33 year old F presents for a laparoscopic cholecystectomy due to gallstones. Patient was having gallbladder attacks during her third trimester of . She states after delivery 7 weeks ago via she has not had any further gallbladder attacks. Patient does try to avoid any red meat/pork/fried or greasy foods. Patient's initial ultrasound was previously done showed no wall thickening no pericholecystic fluid multiple gallstones and a bile duct that was 5 mm done at [facility] in [place]. Past Medical History Medical History: Medical History (Last Reviewed 03/18/19 @ 08:51 by Melida Larson) Cardiac murmur R01.1 Gallstones K80.20 surgery planned pp History of gestational diabetes Z86.32 Allergies amoxicillin [Amoxicillin] Allergy (Verified 03/18/19 08:52) Hives Penicillins Allergy (Verified 03/18/19 08:52) Hives Home Medications: Ambulatory Orders Medication Instructions Recorded norethindrone (contraceptive) 0.35 0.35 mg PO DAILY #28 tab 03/18/19 mg tablet Surgical History: Surgical History (Last Reviewed 03/18/19 @ 08:51 by Melida Larson) History of section Onset Date: ~2010 Z98.891 History of section Onset Date: ~2013 Z98.89 Smoking Status: Never smoker Tobacco Use: Non-smoker VTE Information - Inpt Only VTE Present on Admission: Yes VTE Mechan Device Prophylaxis: SCD's VTE Pharm Prophylaxis ordered?: No Reason prophylaxis not ordered:: Treatment Not Indicated - Physical Exam Vitals/I&O's: Vital Signs Temp Pulse Resp BP Pulse Ox 98 F 84 16 120/82 H 99 03/26/19 06:13 03/26/19 06:13 03/26/19 06:13 03/26/19 06:13 03/26/19 06:13 Oxygen Delivery Method Room Air Weight: 192 lb 14.472 oz Body Mass Index (BMI) 34.2 General: Alert, Oriented x3, Cooperative, No apparent distress HEENT: Atraumatic Lungs: Normal air movement Cardiovascular: Regular rate Abdomen: Soft, Non Tender, Non-Distended Extremities: No clubbing, No cyanosis, No edema Neurological: Cranial nerves II-XII grossly intact Psych/Mental Status: Normal Affect Laboratory Results 03/26/19 06:05: Urine Test Negative Current Medications Cefotetan Disodium 2 gm/ (Sodium Chloride) 100 mls @ 200 mls/hr IV PREOP ONE Stop: 03/26/19 07:44 Lactated Ringer's () 1,000 mls @ 100 mls/hr IV .Q10H LUIS Last Admin: 03/26/19 06:45 Dose: 100 mls/hr Documented by: Assessment/Plan All Active Problems (Last Reviewed 03/18/19 @ 08:51 by Melida Larson) Abnormal ultrasound (Acute) Gestational diabetes (Acute) Cholelithiasis (Acute) (Acute) History of delivery (Acute) Supervision of normal (Acute) 33-year-old female with symptomatic cholelithiasis Reviewed the anatomy with the patient and discussed the procedure: laparoscopic cholecystectomy with possible cholangiograms, possible open. Review risks including but not limited to bleeding, infection, hernia, bile leak, retained gallstones requiring another procedure ERCP- Endoscopic Retrograde Cholangiopancreatography, injury to another organ (bile ducts, common bile duct, small bowel, etc.) and conversion to an open procedure. All questions were answered. Patient no further questions this time. Lyn Kamara M.D. Pager: [phone] [facility] [address] [place] [address], [address] [place] [address] Office: [phone]
--- NOTE | 2019-03-26 07:15 | GALL_PTH ---
PATIENT: MITCHELL CONNER LOC: [facility] – [place] U#:[id number] AGE/SX: 33/F ROOM: RE03/26/[address]: Dr. Lyn Kamara MD : [id number] BED: DIS: 03/26/2019 SPEC #: [id number] RECD: 03/26/19 09:48 STATUS: AUDI POPPY #: [id number] GABRIELA: 03/26/19 07:[address]: Lyn Kamara DEPT: SURGICAL PATHOLOGY RECD BY: Pankaj Wells ENTERED: 03/26/19 13:18 SP TYPE: RAJ RAUSCH DR: Dr. Gary Stevens MD Tissues: Gallbladder, NOS Procedures: Surgery Specimen Level III HEADER OPERATION: Laparoscopic cholecystectomy with IOC PRE-OP DIAGNOSIS: Cholelithiasis TISSUE SUBMITTED: Gallbladder MICROSCOPIC DIAGNOSIS Gallbladder, cholecystectomy: Chronic cholecystitis and cholelithiasis. Focal dysplastic epithelium. AM:josefina 03/27/19 MICROSCOPIC DESCRIPTION Slides are reviewed. GROSS DESCRIPTION Received is one container labeled with the patient's name and designated gallbladder. The specimen consists of a gallbladder measuring 9.5 x 3 x 3 cm. The external surface is smooth and glistening. Focally, it is granular, hemorrhagic and contains cautery artifact. The lumen of the gallbladder contains yellow-green mucoid bile and five chalky, yellow stones averaging 1.3 cm in diameter. The mucosa is bile-stained and without any mass lesions. The gallbladder wall averages 0.2 cm in thickness and is free of mass lesions. Cigar Packer And Sorter sections of the gallbladder and the cystic duct are submitted in four cassette. / AM:josefina 03/26/19 TC:? CPT: 54153
--- NOTE | 2019-03-26 07:15 | RAD_ITS ---
CLINICAL HISTORY: Female, 33 years old. Abdominal pain PROCEDURE: CHOLANGIOGRAM - intraoperative FLUOROSCOPY TIME (if supplied): (0:04) minutes/seconds TECHNIQUE: (All elements of maximal sterile barrier technique followed, including US elements as applicable) 4 seconds of fluoroscopy of the abdomen was utilized and operating room during an intraoperative cholangiogram and 20 images were submitted for interpretation. FINDINGS: A cannula seen in the cystic duct remnant. Contrast is seen throughout the common bile duct without filling defect to suggest common bile duct stone. There is spillage of contrast through the ampulla into the duodenum. RAD/Cholangiogram/ O R,Initial IMPRESSION: No common bile duct stone. Electronically Signed: Cristofer Omer MD at 8:49 EST Tel , Service support ,
[2019-03-26] MEDS: Bupivacaine Mpf 0.5% 30 ML VIAL (08:32)
--- NOTE | 2019-03-26 08:32 | OP.PCM_ITS ---
Report of Operation Date of Procedure: 03/26/19 Pre-Operative Diagnosis: Symptomatic cholelithiasis Post-Operative Diagnosis: Same Surgery/Procedure Performed:: Laparoscopic cholecystectomy with cholangiograms window draper: Fernanda Spain Type of Anesthesia:: General/Supplemental Anesthesiologist: Jeff Gallagher Special Medications: Cefotan 2 g IV x1 Specimen's removed: Gallbladder Estimated Blood Loss (mL): < 10 cc Fluids Replaced: 1100 cc Description of Procedure: Indications this is a 33 year-old female who developed abdominal pain/nausea/vomiting and on workup was found to have cholelithiasis, with a normal common bile duct. Laparoscopic cholecystectomy was elected. Description procedure: The patient was placed on operating table in supine position. General Anesthesia was induced. A timeout was completed verifying correct patient, procedure, site, position and special equipment prior to beginning procedure. The abdomen was prepped and draped in usual sterile fashion. An incision was made in the natural skin line above the umbilicus. The fascia was elevated and incised. The peritoneum was elevated and incised. Entry into the peritoneum was confirmed visually and no bowel was noted in the vicinity of the incision. Dye trocar was placed. The abdomen was insufflated with carbon dioxide to a pressure of 12-15 mmHg. Patient tolerated insufflation well. The laparoscope was then inserted and abdomen inspected. No injuries from initial trocar placement were noted. Additional trochars were then inserted in the following locations 5 mm trocar in the epigastrium and 2 more 5 mm trochars along the right costal margin. The abdomen was inspected no abnormalities were found. The table is placed in reverse Trendelenburg position with the right side up. The adhesions between the gallbladder and omentum were lysed sharply. The dome of the gallbladder was grasped with atraumatic grasper passed through the lateral port and retracted over the dome of the liver. Infundibulum was then grasped with atraumatic grasper through the midclavicular port and retracted to the right lower quadrant. This maneuver exposed Calot's triangle. The peritoneum overlying the gallbladder infundibulum was then incised and cystic duct and artery identified and circumferentially dissected. Forbes catheter was used for cholangiograms. The cholangiogram showed good filling of the common bile duct into the duodenum with no filling defects, good filling of the right and left bile ducts as well. The cystic duct and artery were then doubly clipped and divided close to the gallbladder. The gallbladder then dissected from its peritoneal attachments by electrocautery. Hemostasis was checked and the gallbladder and contained stones were removed using the endoscopic retrieval bag through the umbilical port. The gallbladder is passed off table as specimen. The gallbladder fossa was copiously irrigated with saline and hemostasis obtained. There is no evidence of bleeding from the gallbladder fossa or cystic artery leakage of bile from the cystic duct stump. Secondary trochars removed under direct vision. No bleeding was noted the trocar sites. The laparoscope was withdrawn and umbilical trocar removed. The abdomen was allowed to collapse. The fascia of the 12 mm trocar was closed with a [id number] 0 Vicryl suture. The skin was closed with sutures of 4-0 Monocryl and Steri-Strips. The orogastric tube was removed and the patient was extubated. The patient tolerated procedure well and was taken to the postanesthesia care unit in stable condition. - Complications none
--- NOTE | 2019-03-26 08:38 | DCINST_ITS ---
Discharge Diet: Light diet - advance as tolerated Discharge Activity: May not drive while taking narcotic pain medications. May shower in (days): 1 Lifting Restrictions: No lifting greater than 20 pounds x 2 weeks Call your doctor if your incision/area has: Continuous Slow Oozing, Sudden Increased Bleeding, Increased Pain/ Swelling, Increased Redness, Foul Smelling Discharge, Swelling at the incision site Call your doctor if you observe: Fever of 101 or Higher Additional Instructions: Okay to take ibuprofen 400-600 mg PO q6hr PRN along with the Percocet. Avoid Tylenol since there is already Tylenol in the Percocet. Take all pain meds with food. Percocet can cause constipation recommend taking daily stool softener (i.e. Colace/docusate) while taking the pain meds. Recommend starting some MiraLAX in 1 to 2 days if no bowel movement. If still no bowel movement following day recommend taking magnesium citrate half the bottle and waiting 4-6 hours if still no results take the other half the bottle. Allergies/Adverse Reactions: Allergies amoxicillin [Amoxicillin] Allergy (Verified 03/18/19 08:52) Hives Penicillins Allergy (Verified 03/18/19 08:52) Hives Medications to take at Discharge norethindrone (contraceptive) 0.35 mg tablet 0.35 mg PO DAILY #28 tab 03/18/19 Oxycodone HCl/Acetaminophen [Percocet 5/325] 1 - 2 tablet PO Q6H PRN PRN 4 Days #15 tablet 03/26/19 The following prescriptions were given: Oxycodone HCl/Acetaminophen [Percocet 5/325] 1 - 2 tablet PO Q6H PRN PRN 4 Days #15 tablet PRN Reason: Pain Transmission Status: Received by [facility]/pharmacy #[id number] Primary Care Physician: Gary Stevens MD [Primary Care Provider] - Test Results: Test results from this visit will be discussed in further detail at your follow- up appointment, if applicable. Please Follow Up With: Lyn Kmaara MD - Call [phone] with any concerns after 5 PM and on the weekends When: The office for follow-up appointment 2 weeks. Proposed Discharge Date: 03/26/19
[2019-03-26 08:48] VITALS: BP 120/82; BP 129/79; PULSE 82; RESP 16; TEMP 37.3; O2SAT 98
[2019-03-26 09:00] VITALS: BP 117/71; BP 120/82; PULSE 66; RESP 18; O2SAT 100
[2019-03-26 09:15] VITALS: BP 120/82; BP 122/75; PULSE 63; RESP 16; TEMP 36.2; O2SAT 100
[2019-03-26] MEDS: oxyCODONE 5 MG Tablet 10 MG PO (10:15)
[2019-03-26] MEDS: Acetaminophen 325 MG Tablet 650 MG PO (10:15)
[2019-03-26 11:56] VITALS: BP 120/82; BP 123/72; PULSE 72; RESP 16; TEMP 36.6; O2SAT 100
== END 2019-03-26 11:59 | disposition home or self-care (01) ==
LOC: SDC 05:38 → AC 05:39
PROVIDERS: Anesthesiology; Family Provider Family Medicine; PCP Family Medicine; Referring Provider Surgery; Visit Provider Surgery
PROC: (CPT 47610; principal; 2019-03-26 06:55)
DX: K80.10 Calculus of gallbladder with chronic cholecystitis without obstruction (principal); Z88.0 Allergy status to penicillin; Z86.32 Personal history of gestational diabetes
CPT/HCPCS: 47563; 74300; 76000; 81025; 88304; 93005; J7120; J2405

== ENCOUNTER → 2019-03-30 08:20 | Outpatient (CLI) | payer OTHER, SELFPAY ==
[2019-03-18 09:10] VITALS: BMI 36.0
[2019-03-26 06:13] VITALS: BMI 34.2
--- NOTE | 2019-03-30 08:21 | US_ITS ---
STUDY: THYROID ULTRASOUND REASON FOR EXAM: Female, 33 years old. Enlarged thyroid palpated by doctor. Thyromegaly. TECHNIQUE: Ultrasound evaluation of the thyroid was performed with real-time and static cavanaugh-scale imaging. COMPARISON: None. FINDINGS: RIGHT LOBE: The right lobe of the thyroid gland measures 4.4 x 1.4 x 1.4 cm. There is a homogeneous echotexture. There are no demonstrated solid, cystic or complex lesions. There is normal vascularity on Doppler imaging. LEFT LOBE: The left lobe of the thyroid gland measures 3.6 x 1.4 x 1 point cm. There is a homogeneous echotexture. There are no demonstrated solid, cystic or complex lesions. Normal vascularity on Doppler imaging. ISTHMUS: The isthmus measures 0.3 cm. The regional lymph nodes are normal. US/Thyroid IMPRESSION: Normal ultrasound examination of the thyroid. Electronically Signed: Deondre Pa DO at 19:47 EST Tel [phone], Service support ,
== END ==
LOC: US 08:21
PROVIDERS: Family Provider Family Medicine; PCP Family Medicine; Referring Provider Obstetrics & Gynecology; Visit Provider Obstetrics & Gynecology
DX: E01.0 Iodine-deficiency related diffuse (endemic) goiter (principal)
CPT/HCPCS: 76536

== ENCOUNTER → 2019-04-23 10:59 | Outpatient (CLI) | payer OTHER, SELFPAY ==
[2019-04-03 15:23] VITALS: BMI 34.2
--- NOTE | 2019-04-23 10:59 | MRI_ITS ---
STUDY: MR CHOLANGIOPANCREATOGRAPHY (MRCP); MRI ABDOMEN WITHOUT AND WITH IV CONTRAST REASON FOR EXAM: Female, 33 years old. 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 TECHNIQUE: Standard MRCP technique was utilized. Three-dimensional reconstruction images performed of the biliary system at an independent workstation and reviewed at time of dictation. Multipulse orthogonal MRI of the upper abdomen prior to and following IV contrast (17 mL Dotarem). COMPARISON: None. FINDINGS: MRCP: Gall Bladder: Gallbladder is absent. No focal fluid collection. Cystic duct: Cystic duct was not well visualized. Intrahepatic ducts: Normal visualized intrahepatic ducts with no demonstrated fixed filling defect, dilation or stricture. Common hepatic duct: Normal with no demonstrated fixed filling defect, dilation or stricture. Common bile duct: Normal with no demonstrated fixed filling defect, dilation or stricture. Pancreatic duct: Normal with no demonstrated fixed filling defect, dilation or stricture. MRI abdomen without and with IV contrast: Visualized bases of the chest is unremarkable. Normal liver. Normal spleen. Normal pancreas. Normal bilateral adrenal glands. Normal right kidney. Normal left kidney. Visualized hollow viscus structures are normal. No retroperitoneal adenopathy. No bone marrow edema. MRI/MRI Abd WITH and W/O Contrast IMPRESSION: 1. No hepatic masses. No choledocholithiasis. 2. Cholecystectomy. No focal fluid collection. Electronically Signed: Reno Freire MD (Brooks) at 10:00 EST , Service support ,
== END ==
LOC: MRI 10:59
PROVIDERS: PCP Family Medicine; Referring Provider Surgery; Visit Provider Surgery
DX: K82.9 Disease of gallbladder, unspecified (principal)
CPT/HCPCS: 74183; A9575

== ENCOUNTER → 2020-04-18 12:26 | Outpatient (CLI) | payer OTHER, SELFPAY ==
[2019-04-03 15:23] VITALS: BMI 34.2
--- NOTE | 2020-04-18 12:28 | MRI_ITS ---
STUDY: MR MRCP WITHOUT CONTRAST REASON FOR EXAM: Female, 34 years old. gallbladder dysplasia -- recheck pre cancerous cells found during cholecystectomy, dull pain TECHNIQUE: Standard MRCP technique was utilized. COMPARISON: 04/23/2019 FINDINGS: Gall Bladder: Gall bladder is surgically absent. Cystic duct: Normal with no demonstrated fixed filling defect. Intrahepatic ducts: Normal visualized intrahepatic ducts with no demonstrated fixed filling defect, dilation or stricture. Common hepatic duct: Normal with no demonstrated fixed filling defect, dilation or stricture. Common bile duct: Normal with no demonstrated fixed filling defect, dilation or stricture. Pancreatic duct: Normal with no demonstrated fixed filling defect, dilation or stricture. MRI/MRCP Abdomen without Contrast IMPRESSION: Normal MR Cholangiopancreatography (MRCP) after cholecystectomy. Electronically Signed: Cristofer Omer MD at 14:58 EST Tel , Service support ,
== END ==
PROVIDERS: PCP Family Medicine; Referring Provider Surgery; Visit Provider Surgery
DX: K82.9 Disease of gallbladder, unspecified (principal)
CPT/HCPCS: 74181

== ENCOUNTER → 2020-07-11 11:42 | Outpatient (CLI) | payer OTHER, SELFPAY ==
[2020-07-11 11:12] VITALS: BMI 37.2
[2020-07-11 11:57] LABS: Absolute Lymphocyte Count 2.03 X10^3/uL (0.83-4.51); Basophil# 0.02 X10^3/uL; Basophil% 0.3 % (0-1); Eosinophil# 0.06 X10^3/uL; Eosinophils% 0.9 % (0-5); Hematocrit 42.9 % (37-47); Hemoglobin 13.5 g/dL (12.0-15.0); Lymphocyte # 2.03 X10^3/ul (4.0); Lymphocyte % 30.9 % (19-41); Mean Corp Hgb Conc 31.5 g/dL (32-36); Mean Corpuscular Hgb 27.8 pg (27.0-32.0); Mean Corpuscular Volume 88.3 fL (81-99); Mean Platelet Vol. 10.3 fl (6.2-12.0); Monocyte% 7.6 % (0-10); NRBC Flagged by Analyzer 0 % (0-5); Neutrophil # 3.95 X10^3/uL (2.7-7.7); Neutrophil % 60.1 % (47-70); Platelet Count 302 K/mm3 (150-450); RBC Distribution Width CV 13.5 % (11.6-14.6); RBC Distribution Width SD 43.8 fl (35.1-43.9); Red Blood Count 4.86 M/mm3 (4.2-5.4); White Blood Count 6.6 K/mm3 (4.4-11.0)
[2020-07-11 12:25] LABS: Glucose 100 mg/dL (74-106); T4 Free Direct 0.95 ng/dL (0.76-1.46); Thyroid Stim Hormone (TSH) 1.84 uIU/mL (0.358-3.74)
== END ==
LOC: PAVLAB 11:44
PROVIDERS: PCP Family Medicine; Referring Provider Obstetrics & Gynecology; Visit Provider Obstetrics & Gynecology
DX: E01.0 Iodine-deficiency related diffuse (endemic) goiter (principal); Z86.32 Personal history of gestational diabetes; N93.9 Abnormal uterine and vaginal bleeding, unspecified
CPT/HCPCS: 36415; 82947; 84439; 84443; 85025

== ENCOUNTER → 2020-08-08 07:20 | Outpatient (CLI) | payer OTHER, SELFPAY ==
[2020-07-11 11:12] VITALS: BMI 37.2
--- NOTE | 2020-08-08 07:23 | US_ITS ---
STUDY: ULTRASOUND OF THE FEMALE PELVIS - COMPLETE REASON FOR EXAM: Female, 34 years old. Abnormal uterine bleeding. LMP: 07/31/2020. TECHNIQUE: Transabdominal and Transvaginal TECHNICAL QUALITY: Adequate. COMPARISON: None. FINDINGS: The uterus is anteverted and is in a midline position. The uterus measures 8 cm x 4.8 cm x 3.8 cm. Normal uterine cervix. The endometrium measures 5 mm in thickness, and is hyperechoic. There is no demonstrated endometrial mass. There is no demonstrated myometrial mass. I.U.D. - The patient does not have an I.U.D. The right ovary is visualized. The right ovary measures 2.7 cm x 1.4 cm x 1.7 cm. There is no right ovarian cyst or ovarian mass. There is no visualized right adnexal mass or complex lesion. There is normal arterial and normal venous vascularity. The left ovary is visualized. The left ovary measures 3.1 cm x 2.3 cm x 2 cm. There is a 2.3 cm x 2 cm x 1.7 cm cyst in the left ovary. There is no visualized left adnexal mass or complex lesion. There is normal arterial and normal venous vascularity. There is no fluid in the cul-de-sac. The pre void volume of the bladder was 369 ml. Polycystic ovary disease: No. US/Transvaginal Non- IMPRESSION: 2.3 cm x 2 cm x 1.7 cm cyst in the left ovary. Electronically Signed: Vinh Aquino MD at 9:32 EDT , Service support ,
--- NOTE | 2020-08-08 07:23 | US_ITS ---
STUDY: THYROID ULTRASOUND REASON FOR EXAM: Female, 34 years old. Enlargement of the thyroid gland. TECHNIQUE: Ultrasound evaluation of the thyroid was performed with real-time and static cavanaugh-scale imaging. COMPARISON: Comparison is made with prior examination dated 03/30/2019. FINDINGS: RIGHT LOBE: The right lobe of the thyroid gland measures 4.4 cm x 1.4 cm x 1.3 cm. There is a homogeneous echotexture. There are no demonstrated solid, cystic or complex lesions. LEFT LOBE: The left lobe of the thyroid gland measures 3.6 cm x 1.2 cm x 1.1 cm. There is a homogeneous echotexture. There are no demonstrated solid, cystic or complex lesions. ISTHMUS: The isthmus measures 3 mm. The regional lymph nodes are normal. US/Thyroid IMPRESSION: Normal ultrasound examination of the thyroid. Electronically Signed: Vinh Aquino MD at 9:37 EDT , Service support ,
--- NOTE | 2020-08-08 07:23 | US_ITS ---
STUDY: ULTRASOUND OF THE FEMALE PELVIS - COMPLETE REASON FOR EXAM: Female, 34 years old. Abnormal uterine bleeding. LMP: 07/31/2020. TECHNIQUE: Transabdominal and Transvaginal TECHNICAL QUALITY: Adequate. COMPARISON: None. FINDINGS: The uterus is anteverted and is in a midline position. The uterus measures 8 cm x 4.8 cm x 3.8 cm. Normal uterine cervix. The endometrium measures 5 mm in thickness, and is hyperechoic. There is no demonstrated endometrial mass. There is no demonstrated myometrial mass. I.U.D. - The patient does not have an I.U.D. The right ovary is visualized. The right ovary measures 2.7 cm x 1.4 cm x 1.7 cm. There is no right ovarian cyst or ovarian mass. There is no visualized right adnexal mass or complex lesion. There is normal arterial and normal venous vascularity. The left ovary is visualized. The left ovary measures 3.1 cm x 2.3 cm x 2 cm. There is a 2.3 cm x 2 cm x 1.7 cm cyst in the left ovary. There is no visualized left adnexal mass or complex lesion. There is normal arterial and normal venous vascularity. There is no fluid in the cul-de-sac. The pre void volume of the bladder was 369 ml. Polycystic ovary disease: No. US/Pelvic (Non ) IMPRESSION: 2.3 cm x 2 cm x 1.7 cm cyst in the left ovary. Electronically Signed: Vinh Aquino MD at 9:32 EDT , Service support ,
== END ==
LOC: US 07:21
PROVIDERS: PCP Family Medicine; Referring Provider Obstetrics & Gynecology; Visit Provider Obstetrics & Gynecology
DX: N93.9 Abnormal uterine and vaginal bleeding, unspecified (principal); E01.0 Iodine-deficiency related diffuse (endemic) goiter
CPT/HCPCS: 76536; 76830; 76856

== ENCOUNTER → 2021-03-03 13:22 | Outpatient (CLI) | payer BC, SELFPAY ==
[2021-03-03 16:24] LABS: hCG Titer Quant., Serum 81 mIU/mL (1-3)
== END ==
LOC: LAB 13:28
PROVIDERS: PCP Family Medicine; Referring Provider Obstetrics & Gynecology; Visit Provider Obstetrics & Gynecology
DX: N91.2 Amenorrhea, unspecified (principal)
CPT/HCPCS: 36415; 84702

== ENCOUNTER → 2021-03-05 11:38 | Outpatient (CLI) | payer BC, SELFPAY ==
[2021-03-05 12:31] LABS: hCG Titer Quant., Serum 130 mIU/mL (1-3)
== END ==
LOC: LAB 11:39
PROVIDERS: PCP Family Medicine; Referring Provider Obstetrics & Gynecology; Visit Provider Obstetrics & Gynecology
DX: N91.2 Amenorrhea, unspecified (principal)
CPT/HCPCS: 84702

== ENCOUNTER → 2021-03-07 11:37 | Outpatient (CLI) | payer BC, SELFPAY ==
[2021-03-07 12:24] LABS: hCG Titer Quant., Serum 213 mIU/mL (1-3)
== END ==
LOC: PAVLAB 11:38
PROVIDERS: PCP Family Medicine; Referring Provider Obstetrics & Gynecology; Visit Provider Obstetrics & Gynecology
DX: O20.0 Threatened abortion (principal)
CPT/HCPCS: 36415; 84702

== ENCOUNTER 2021-04-03 08:14 | Outpatient (CLI) | payer BC, SELFPAY ==
[2021-04-03 09:07] LABS: hCG Titer Quant., Serum 839 mIU/mL (1-3)
== END 2021-04-03 23:59 | disposition home or self-care (01) ==
LOC: PAVLAB 08:15
PROVIDERS: PCP Family Medicine; Referring Provider Obstetrics & Gynecology; Visit Provider Obstetrics & Gynecology
DX: O03.9 Complete or unspecified spontaneous abortion without complication (principal)
CPT/HCPCS: 36415; 84702

== ENCOUNTER 2021-04-05 08:11 | Outpatient (CLI) | payer BC, SELFPAY ==
[2021-04-05 09:06] LABS: hCG Titer Quant., Serum 332 mIU/mL (1-3)
== END 2021-04-05 23:59 | disposition short-term general hospital (02) ==
LOC: PAVLAB 08:12
PROVIDERS: PCP Family Medicine; Referring Provider Obstetrics & Gynecology; Visit Provider Obstetrics & Gynecology
DX: O03.9 Complete or unspecified spontaneous abortion without complication (principal)
CPT/HCPCS: 36415; 84702; 86850; 86900; 86901

== ENCOUNTER 2021-05-15 07:58 | Outpatient (CLI) | payer BC, SELFPAY ==
--- NOTE | 2021-05-15 07:59 | MRI_ITS ---
EXAM: MR ABDOMEN WITHOUT AND WITH INTRAVENOUS CONTRAST : 1985 CLINICAL INDICATION: gallbladder dysplasia -- include MRCP sequences-- TECHNIQUE: Multiplanar and multisequence MR images of the abdomen without and with intravenous contrast. This report was created using [employer] report generation technology. CONTRAST: IV 17cc dotarem COMPARISON: MRCP April 18, 2020 FINDINGS: LOWER THORAX: Unremarkable. No pleural effusion. LIVER: Unremarkable. Normal morphology. No focal mass. GALLBLADDER AND BILE DUCTS: Gallbladder is absent. Common bile duct measures 5 mm in maximum diameter. No evidence of a common bile duct stone. PANCREAS: Unremarkable. No focal cystic or solid mass. SPLEEN: Unremarkable. Normal size without focal cystic or solid mass. ADRENALS: Unremarkable. No nodules. KIDNEYS AND URETERS: Unremarkable. Normal renal size and position. No hydronephrosis. INTRAPERITONEAL SPACE: Unremarkable. No ascites or other fluid collection. No free air. VASCULATURE: Unremarkable. Abdominal aorta is non-dilated. LYMPH NODES: No enlarged lymph nodes. OTHER FINDINGS: No abnormal contrast enhancement. MRI/MRI Abd WITH and W/O Contrast IMPRESSION: Normal MRI/MRCP and upper abdomen status post cholecystectomy. at 1122 Reported and signed by: Asif Johnson MD Electronically Signed: Asif Johnson MD at 11:21 EST ,
== END 2021-05-15 23:59 | disposition home or self-care (01) ==
PROVIDERS: PCP Family Medicine; Visit Provider Surgery
DX: R93.3 Abnormal findings on diagnostic imaging of other parts of digestive tract (principal)
CPT/HCPCS: 74183; A9575; J7040

== ENCOUNTER 2021-06-07 08:07 | Outpatient (CLI) | payer BC, SELFPAY ==
[2021-06-07 08:54] LABS: hCG Titer Quant., Serum 1 mIU/mL (1-3)
== END 2021-06-07 23:59 | disposition home or self-care (01) ==
LOC: PAVLAB 08:08
PROVIDERS: PCP Family Medicine; Referring Provider Obstetrics & Gynecology; Visit Provider Obstetrics & Gynecology
DX: O36.80X0 Pregnancy with inconclusive fetal viability, not applicable or unspecified (principal); Z3A.00 Weeks of gestation of pregnancy not specified
CPT/HCPCS: 36415; 84702

== ENCOUNTER 2021-06-12 16:14 | Outpatient (CLI) | payer BC, SELFPAY ==
[2021-06-12 17:36] LABS: hCG Titer Quant., Serum < 1 mIU/mL (1-3)
[2021-06-12 17:41] LABS: Thyroid Stim Hormone (TSH) 0.88 uIU/mL (0.358-3.74)
== END 2021-06-12 23:59 | disposition home or self-care (01) ==
LOC: LAB 16:15
PROVIDERS: PCP Family Medicine; Referring Provider Obstetrics & Gynecology; Visit Provider Obstetrics & Gynecology
DX: O36.80X0 Pregnancy with inconclusive fetal viability, not applicable or unspecified (principal); Z3A.00 Weeks of gestation of pregnancy not specified
CPT/HCPCS: 36415; 84443; 84702

== ENCOUNTER 2021-06-20 15:44 | Outpatient (CLI) | payer BC, SELFPAY ==
[2021-06-23 02:04] LABS: Dilute Prothrombin Time (dPT) 34.7 sec (0.0-47.6); Dilute Russell Viper Venom 34.8 sec (0.0-47.0); PTT-LA 32.3 sec (0.0-51.9); Thrombin Time 16.4 sec (0.0-23.0); dPT Confirm Ratio 1.02 Ratio (0.00-1.34)
[2021-06-23 09:21] LABS: Anti-Cardiolipin Ab, IgA, Qn < 9 APL U/mL (0-11); Anti-Cardiolipin Ab, IgG, Qn < 9 GPL U/mL (0-14); Anti-Cardiolipin Ab, IgM, Qn < 9 MPL U/mL (0-12); Beta-2-Glycoprotein I IgA <9 (0-25); Beta-2-Glycoprotein I IgG <9 (0-20); Beta-2-Glycoprotein I IgM <9 (0-32); Interpretation Comment: (.)
== END 2021-06-20 23:59 | disposition home or self-care (01) ==
LOC: PAVLAB 15:45
PROVIDERS: PCP Family Medicine; Referring Provider Obstetrics & Gynecology; Visit Provider Obstetrics & Gynecology
DX: N96 Recurrent pregnancy loss (principal)
CPT/HCPCS: 36415; 86146; 86147

== ENCOUNTER → 2021-07-21 | Outpatient (CLI) | payer BC, SELFPAY ==
--- NOTE | 2021-07-21 07:52 | US_ITS ---
STUDY: ULTRASOUND OF THE FEMALE PELVIS - COMPLETE REASON FOR EXAM: Female, 35 years old. Recurrent miscarriage LMP: 07/05/2021 TECHNIQUE: Transabdominal TECHNICAL QUALITY: Adequate. COMPARISON: None. FINDINGS: The uterus is anteflexed and is in a midline position. The uterus measures 9.0 x 4.0 x 5.5 cm. There is a Nabothian cyst of the cervix. The endometrium measures 12.1 mm in thickness, and is hyperechoic. There is no demonstrated endometrial mass. There is no demonstrated myometrial mass. I.U.D. - The patient does not have an I.U.D. The right ovary is visualized. The right ovary measures 3.9 x 1.6 x 2.7 cm. There is no right ovarian cyst or ovarian mass. There is no visualized right adnexal mass or complex lesion. There is normal arterial and normal venous vascularity. The left ovary is visualized. The left ovary measures 3.2 x 2.3 x 3.0 cm. There is no left ovarian cyst or ovarian mass. There is no visualized left adnexal mass or complex lesion. There is normal arterial and normal venous vascularity. There is no fluid in the cul-de-sac. US/Pelvic (Non ) IMPRESSION: Within normal limits female pelvis. Electronically Signed: Zena Cooney MD at 11:24 EDT ,
--- NOTE | 2021-07-21 07:52 | US_ITS ---
STUDY: ULTRASOUND OF THE FEMALE PELVIS - COMPLETE REASON FOR EXAM: Female, 35 years old. Recurrent miscarriage LMP: 07/05/2021 TECHNIQUE: Transabdominal TECHNICAL QUALITY: Adequate. COMPARISON: None. FINDINGS: The uterus is anteflexed and is in a midline position. The uterus measures 9.0 x 4.0 x 5.5 cm. There is a Nabothian cyst of the cervix. The endometrium measures 12.1 mm in thickness, and is hyperechoic. There is no demonstrated endometrial mass. There is no demonstrated myometrial mass. I.U.D. - The patient does not have an I.U.D. The right ovary is visualized. The right ovary measures 3.9 x 1.6 x 2.7 cm. There is no right ovarian cyst or ovarian mass. There is no visualized right adnexal mass or complex lesion. There is normal arterial and normal venous vascularity. The left ovary is visualized. The left ovary measures 3.2 x 2.3 x 3.0 cm. There is no left ovarian cyst or ovarian mass. There is no visualized left adnexal mass or complex lesion. There is normal arterial and normal venous vascularity. There is no fluid in the cul-de-sac. US/Transvaginal Non- IMPRESSION: Within normal limits female pelvis. Electronically Signed: Zena Cooney MD at 11:24 EDT ,
== END | disposition home or self-care (01) ==
PROVIDERS: PCP Family Medicine; Referring Provider Obstetrics & Gynecology; Visit Provider Obstetrics & Gynecology
DX: L68.0 Hirsutism (principal); N96 Recurrent pregnancy loss
CPT/HCPCS: 76830; 76856

== ENCOUNTER → 2021-08-02 | Outpatient (CLI) | payer BC, SELFPAY ==
[2021-08-02 09:35] LABS: Hemoglobin A1c 5.5 % (3.8-5.6)
[2021-08-04 19:59] LABS: Testosterone Free 1.6 pg/mL (0.0-4.2)
== END | disposition home or self-care (01) ==
LOC: PAVLAB 08:51
PROVIDERS: PCP Family Medicine; Referring Provider Obstetrics & Gynecology; Visit Provider Obstetrics & Gynecology
DX: L68.0 Hirsutism (principal); N96 Recurrent pregnancy loss
CPT/HCPCS: 36415; 82627; 83036; 84402; 82626

== ENCOUNTER → 2021-08-22 | Outpatient (CLI) | payer BC, SELFPAY ==
[2021-08-22 10:32] LABS: hCG Titer Quant., Serum < 1 mIU/mL (1-3)
== END | disposition home or self-care (01) ==
LOC: PAVLAB 09:00
PROVIDERS: PCP Family Medicine; Referring Provider Obstetrics & Gynecology; Visit Provider Obstetrics & Gynecology
DX: N96 Recurrent pregnancy loss (principal)
CPT/HCPCS: 36415; 84702

== ENCOUNTER → 2021-08-25 | Outpatient (CLI) | payer BC, SELFPAY ==
[2021-08-25 14:03] LABS: hCG Titer Quant., Serum 11 mIU/mL (1-3)
== END | disposition home or self-care (01) ==
LOC: LAB 12:32
PROVIDERS: PCP Family Medicine; Referring Provider Obstetrics & Gynecology; Visit Provider Obstetrics & Gynecology
DX: N96 Recurrent pregnancy loss (principal)
CPT/HCPCS: 36415; 84702

== ENCOUNTER → 2021-08-27 | Outpatient (CLI) | payer BC, SELFPAY ==
[2021-08-27 09:13] LABS: hCG Titer Quant., Serum 20 mIU/mL (1-3)
== END | disposition home or self-care (01) ==
LOC: LAB 08:19
PROVIDERS: PCP Family Medicine; Visit Provider Obstetrics & Gynecology
DX: O20.0 Threatened abortion (principal); Z13.1 Encounter for screening for diabetes mellitus
CPT/HCPCS: 84702

== ENCOUNTER → 2021-08-29 | Outpatient (CLI) | payer BC, SELFPAY ==
[2021-08-29 13:30] LABS: hCG Titer Quant., Serum 29 mIU/mL (1-3)
== END | disposition home or self-care (01) ==
LOC: PAVLAB 12:38
PROVIDERS: PCP Family Medicine; Referring Provider Obstetrics & Gynecology; Visit Provider Obstetrics & Gynecology
DX: N96 Recurrent pregnancy loss (principal); N91.2 Amenorrhea, unspecified
CPT/HCPCS: 36415; 84702

== ENCOUNTER → 2021-08-31 | Outpatient (CLI) | payer BC, SELFPAY ==
[2021-08-31 13:39] LABS: hCG Titer Quant., Serum 62 mIU/mL (1-3)
== END | disposition home or self-care (01) ==
LOC: PAVLAB 12:29
PROVIDERS: PCP Family Medicine; Referring Provider Obstetrics & Gynecology; Visit Provider Obstetrics & Gynecology
DX: N91.2 Amenorrhea, unspecified (principal); N96 Recurrent pregnancy loss
CPT/HCPCS: 36415; 84702

== ENCOUNTER → 2021-09-18 | Outpatient (CLI) | payer BC, SELFPAY ==
--- NOTE | 2021-09-18 12:11 | US_ITS ---
STUDY: FIRST TRIMESTER OBSTETRICAL ULTRASOUND REASON FOR EXAM: Female, 36 years old. well being TECHNIQUE: Transvaginal US was obtained to better visualized the ovaries. TECHNICAL QUALITY: Adequate. PRIOR ULTRASOUND: 07.21.21. FINDINGS: There is visualization of a single gestational sac in a normal intrauterine position. The mean sac diameter (MSD) measures 7.5 mm (this is 1st percentile for size), indicating an estimated gestational age (EGA) of 5 weeks, 3 days. The gestational sac shape is within normal limits. There is a visualized yolk sac. The yolk sac measures 3.3 mm. The placenta is non-visualized. Due to early gestation, the placenta is not seen. There is visualization of a live embryo. The crown-rump length (CRL) measures 5.2 mm, indicating an estimated gestational age (EGA) of 6 weeks, 3 days. There is demonstrated cardiac activity with a heart rate of 130 bpm. The estimated gestation age (EGA) by LMP is 7 weeks, 0 days. The estimated date of delivery (ISACC) by LMP is 2.6.23. The estimated gestation age (EGA) by US is 5 weeks, 6 days. The estimated date of delivery (ISACC) by US is 2.14.23. The uterus measures 9 x 6.5 cm. There is no demonstrated uterine fibroid. The cervix is closed. The right ovary : It is not visualized. There is too much overlying bowel gas. The left ovary measures 2.5 x 2.5 cm. There is no left ovarian cyst. There is no visualized left adnexal mass or complex lesion. There is no fluid in the cul de sac. US/Transvaginal w/Preg US IMPRESSION: There is a single live intrauterine with a heart rate of 130 bpm. The estimated gestation age (EGA) by US is 5 weeks, 6 days. The estimated date of delivery (ISACC) by US is 2.14.23. Electronically Signed: Neil Castellanos MD at 15:22 EDT ,
== END | disposition home or self-care (01) ==
LOC: OPUS 12:10
PROVIDERS: PCP Family Medicine; Visit Provider Obstetrics & Gynecology
DX: N96 Recurrent pregnancy loss (principal); N91.2 Amenorrhea, unspecified
CPT/HCPCS: 76817

== ENCOUNTER → 2021-09-21 | Outpatient (CLI) | payer BC, SELFPAY ==
[2021-09-21 11:28] LABS: Amphetamine Urine VISTA NEGATIVE (<1000 ng/mL); Barbiturate Urine VISTA NEGATIVE (< 200 ng/mL); Benzodiazepine Urine VISTA NEGATIVE (< 200 ng/mL); Cocaine Urine VISTA NEGATIVE (< 300 ng/mL); Ecstacy Urine VISTA NEGATIVE (< 500 ng/mL); Methadone Urine VISTA NEGATIVE (< 300 ng/mL); PCP Urine VISTA NEGATIVE (< 25 ng/mL); THC Urine VISTA NEGATIVE (< 50 ng/mL); Vista UDS pH Range 6
[2021-09-22 21:07] LABS: Chlamydia By Nucleic Acid AMP Negative (Negative)
[2021-09-22 22:23] LABS: Gonococcus By Nucleic Acid AMP Negative (Negative)
[2021-09-24 08:26] LABS: HPV APTIMA, High Risk Negative (Negative)
== END | disposition home or self-care (01) ==
LOC: LABSPEC 16:55
PROVIDERS: PCP Family Medicine; Visit Provider Obstetrics & Gynecology
DX: Z34.90 Encounter for supervision of normal pregnancy, unspecified, unspecified trimester (principal)
CPT/HCPCS: 80307; 87086; 87088; 87491; 87591; 87624; 88175; G0145

== ENCOUNTER → 2021-09-25 | Outpatient (CLI) | payer BC, SELFPAY ==
--- NOTE | 2021-09-25 12:09 | US_ITS ---
STUDY: FIRST TRIMESTER OBSTETRICAL ULTRASOUND REASON FOR EXAM: Female, 36 years old. viability TECHNIQUE: Transvaginal US was obtained to better visualized the ovaries. TECHNICAL QUALITY: Sep 18 2021 12:22pm PRIOR ULTRASOUND: None. FINDINGS: There is visualization of a single gestational sac in a normal intrauterine position. The mean sac diameter (MSD) measures 14 mm, indicating an estimated gestational age (EGA) of 6 weeks, 2 days. The gestational sac shape is within normal limits. There is a visualized yolk sac. The yolk sac measures 6.1 mm. The placenta is non-visualized. Due to early gestation, the placenta is not seen. There is visualization of a live embryo. The crown-rump length (CRL) measures 14 mm, indicating an estimated gestational age (EGA) of 7 weeks, 5 days. There is demonstrated cardiac activity with a heart rate of 166 bpm. The estimated gestation age (EGA) by LMP is 8 weeks, 0 days. The estimated date of delivery (ISACC) by LMP is 2.6.23. The estimated gestation age (EGA) by US is 7 weeks, 0 days. The estimated date of delivery (ISACC) by US is 2.13.23. The uterus measures 9.8 x 6.1 cm. There is no demonstrated uterine fibroid. The cervix is closed. The right ovary measures in cm: 2.4. There is no right ovarian cyst. There is no visualized right adnexal mass or complex lesion. The left ovary measures 2.1 cm. There is no left ovarian cyst. There is no visualized left adnexal mass or complex lesion. There is no fluid in the cul de sac. US/Transvaginal w/Preg US IMPRESSION: There is a single live intrauterine with a heart rate of 166 bpm. The estimated gestation age (EGA) by US is 7 weeks, 0 days. The estimated date of delivery (ISACC) by US is 2.13.23. Electronically Signed: Neil Castellanos MD at 14:50 EDT ,
== END | disposition home or self-care (01) ==
PROVIDERS: PCP Family Medicine; Visit Provider Obstetrics & Gynecology
DX: N96 Recurrent pregnancy loss (principal)
CPT/HCPCS: 76817

== ENCOUNTER 2021-10-10 07:46 | Day surgery (SDC) | payer BC, SELFPAY ==
[2021-10-10] VITALS (8 sets, daily range): BP systolic 127–147; BP diastolic 72–85; PULSE 76–86; RESP 16–18; TEMP 36.8–37.2; O2SAT 98–100; BMI 35.9
--- NOTE | 2021-10-10 07:51 | US_ITS ---
STUDY: FIRST TRIMESTER OBSTETRICAL ULTRASOUND REASON FOR EXAM: Female, 36 years old spontaneous LMP: 07/31/2021. TECHNIQUE: Transvaginal TECHNICAL QUALITY: Adequate. PRIOR ULTRASOUND: Comparison is made with prior study dated 09/25/2021. FINDINGS: There is visualization of a single gestational sac in a normal intrauterine position. The mean sac diameter (MSD) measures 2.58 cm, indicating an estimated gestational age (EGA) of 7 weeks, 4 days. The gestational sac shape is within normal limits. There is no demonstrated yolk sac. The placenta is non-visualized. There is visualization of an embryo with no cardiac activity, consistent with intrauterine demise. The crown-rump length (CRL) measures 1.98 cm, indicating an estimated gestational age (EGA) of 8weeks, 2 days. The estimated gestation age (EGA) by LMP is 10 weeks, 1 days. The estimated date of delivery (ISACC) by LMP is 05/07/2022. The estimated gestation age (EGA) by US is 7 weeks, 6 days. The estimated date of delivery (ISACC) by US is 05/23/2022. The uterus measures 10.2 cm x 7 cm x 5.9 cm. There is no demonstrated uterine fibroid. The cervix is closed. The right ovary is nonvisualized. The left ovary measures 1.8 cm x 1.5 cm x 1.8 cm. There is no left ovarian cyst. There is no visualized left adnexal mass or complex lesion. There is no fluid in the cul de sac. US/Transvaginal w/Preg US IMPRESSION: demise. Electronically Signed: Vinh Aquino MD at 8:46 EDT ,
[2021-10-10] MEDS: Doxycycline 100 MG CAPSULE PO (13:48)
[2021-10-10] MEDS: Lactated Ringers 1,000 ML 125 ML IV (13:49)
[2021-10-10 13:57] LABS: Absolute Lymphocyte Count 1.92 X10^3/uL (0.83-4.51); Absolute Neutrophil Count 5.5 X10^3/uL (2.0-7.7); Basophil# 0.01 X10^3/uL; Basophil% 0.1 % (0-1); Eosinophil# 0.03 X10^3/uL; Eosinophils% 0.4 % (0-5); Hematocrit 39.5 % (37-47); Lymphocyte # 1.92 X10^3/ul (0.83-4.51); Lymphocyte % 24.2 % (19-41); Mean Corp Hgb Conc 32.9 g/dL (32-36); Mean Corpuscular Hgb 29.4 pg (27.0-32.0); Mean Corpuscular Volume 89.4 fL (81-99); Mean Platelet Vol. 10.8 fl (6.2-12.0); Monocyte# 0.43 X10^3/uL; Monocyte% 5.4 % (0-10); NRBC Flagged by Analyzer 0 % (0-5); Neutrophil # 5.52 X10^3/uL (2.7-7.7); Neutrophil % 69.5 % (47-70); Platelet Count 265 K/mm3 (150-450); RBC Distribution Width CV 12.9 % (11.6-14.6); RBC Distribution Width SD 42.4 fl (35.1-43.9); Red Blood Count 4.42 M/mm3 (4.2-5.4); White Blood Count 7.9 K/mm3 (4.4-11.0)
--- NOTE | 2021-10-10 14:30 | POC_PTH ---
PATIENT: MITCHELL CONNER LOC: [facility] [place][id number] AGE/SX: 36/F ROOM: RE10/10/[address]: Dr. Dixie Swan MD : 1985 BED: DIS: 10/10/2021 SPEC #: [id number] RECD: 10/10/21 15:30 STATUS: AUDI POPPY #: [id number] GABRIELA: 10/10/21 14:[address]: Dixie wSan DEPT: SURGICAL PATHOLOGY RECD BY: Dahlia Charles ENTERED: 10/11/21 09:45 SP TYPE: PROD CONC OTHR DR: Dr. Gary Stevens MD Tissues: Product of conception, NOS Procedures: Surgery Specimen Level IV HEADER OPERATION: Suction dilation and curettage PRE-OP DIAGNOSIS: Missed TISSUE SUBMITTED: Products of conception ? Anora test MICROSCOPIC DIAGNOSIS Endometrium, curettage: Chorionic villi, decidualized stroma and trophoblastic cells consistent with products of conception. AM:josefina 10/12/2021 MICROSCOPIC DESCRIPTION Slides are reviewed. GROSS DESCRIPTION Received in fixative is one container labeled with the patient's name and designated products of conception. The specimen consists of multiple pieces of pink soft tissue that in aggregate measure 6 x 6 x 1.5 cm. tissue is not identified. A portion of tissue is submitted for Anora studies. Bioinformatics Research Technician tissue is submitted in three cassettes. / SJ:josefina 10/11/2021 TC:5 CPT: 26325
--- NOTE | 2021-10-10 15:14 | OP.PCM_ITS ---
Problems Associated Problem List Diagnoses (1) Missed : (2) History of recurrent miscarriages: Report of Operation Date of Procedure: 10/10/21 Pre-Operative Diagnosis: see problem list Post-Operative Diagnosis: same Surgery/Procedure Performed:: Suction dilation and curettage Description of Surgical Findings:: no FHT present, Nonviable [] weeks Surgeon: Dixie Swan topline beading machine tender: None Type of Anesthesia: Local MAC Special Medications: none Specimen's removed: POC Drains: none Estimated Blood Loss (mL): 50 Fluids Replaced: crystalloid Description of Procedure: Patient was taken to the operating room and placed under MAC local anesthesia. She was prepped and draped in the normal sterile fashion the dorsal lithotomy p osition. Bladder was drained of clear urine and anterior lip of the cervix was grasped and the uterus sounded to 10cm. Cervix was progressively dilated to allow passage of a 10 mm suction curette. Progressive passes were made removing the retained products of conception without complication. Sharp curettage confirmed complete removal of the retained products. All instruments were removed from the vagina and excellent hemostasis was noted and the patient was taken to recovery in stable condition. Grafts/Implants Used: none Complications none Admit VTE Documentation VTE Present on Admission: No VTE Mechan Device Prophylaxis: SCD's Procedures Urinary/Genital 52xxx-59xxx: 14796 Surg Trtmt missed Ab, 1TM
--- NOTE | 2021-10-10 15:14 | HP.PCM_ITS ---
History and Physical ntake Vital Signs ? 10/09/2214:29 10/09/2214:30 Height 5 ft 3 in 5 ft 3 in Weight: 205 lb 6 oz ? BMI 36.3 ? BP 130/84 H ? 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 And Footwear Mechanic Required: No Is patient in pain?: No Allergies amoxicillin [Amoxicillin] Allergy (Verified 10/09/21 15:29) HivesPenicillins Allergy (Verified 10/09/21 15:29) Hives Medications vitamin#30 30 mg iron-10 mg iron-folic acid 1 mg-omg3 capsule cap PO 04/03/21 [History Confirmed 10/09/21] doxylamine succinate 25 mg tablet (Unisom (doxylamine)) 25 mg PO QHS PRN 09/21/21 [History Confirmed 10/09/21] progesterone micronized 200 mg capsule 200 mg PO QHS 09/21/21 [History Confirmed 10/09/21] pyridoxine (vitamin B6) 50 mg capsule (Vitamin B-6) 50 mg PO DAILY 09/21/21 [History Confirmed 10/09/21] Last Menstral Period: 05/05/18 Zika: Zika virus screening: Negative : No PFSH PFSH Medical History? Abdominal hernia Abnormal magnetic resonance cholangiopancreatography (MRCP) Cardiac murmur Gallstones History of gestational diabetes Surgical History? History of section (~2010) History of section (~2013) Hx laparoscopic cholecystectomy Family History? Mother DiabetesFather Hypertension Social History? Smoking Status:? Never smoker alcohol intake:? never substance use type:? does not use caffeine:? Yes what type of physical activity do you participate in:? walking seatbelt use:? always do you feel safe at home:? Yes additional social history:? 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 ? ? 5 ? Elective abortions ? Hx Para ? ? ? 3 ? Spontaneous abortions ? ? ? 2 Hx # Term Pregnancies ? Ectopic pregnanciesA ? Hx # Pregnancies ? Multiple births ? # of living children ? ? ? 3 Past Pregnancies Del. Date Name GA/Weeks Outcome Route Bth Weight Gen Labor Lgth Anesthesia Del Locatn Provider FOB Unknown 2010 Miles 39 live - full term 7lbs 2oz Male ? [facility] Dr. Ferro ? Unknown 2013 Pierre 39 live - full term 7lbs 4oz Male ? [facility] Dr. Aleman ? 02/05/19 Mamadou 39 live - full term 7lbs 2oz Male ? spinal [facility] ? Delivery Date:?? Last Updated by: Francoise Adams ? ? ? distress- emergency c/s Delivery Date:?? Last Updated by: Francoise Adams ? ? ? scheduled c/s HPI est ob 8w Details: MELIDA CONNER is a 36 year old who presents for routine OB visit. upon evaluation there is no fht seen and no clolor flow seen, normal GS appearance, CRL measuring 7w6d which is 1 week behind.? she denies any bleeding or abdominal pain, has had occasional cramping. OB Visit ISACC Calculator ? Estimated Delivery Date Method Current WG Current Estimate 05/15/22 Ultrasound #2 8w 6d Expected Delivery Route/Plan RLTCS Specific Issue/Plans Covid status: [] Flu vaccine: [] Tdap vaccine: [] Rhogam: [] LARC form signed: [] Problem list reviewed and updated with the most current plan of care details and appropriate orders placed.? Relevant counseling for the gestational age provided. Continue routine care and follow up unless otherwise noted in visit notes/problem list details Initial Weight:?Not Recorded Date -?-?-?-?-?-?-?-?-?-?-?-?- EGA Weight BP Urine Prot -?-?-?-?-?-?-?-?-?-?-?-?- Glucose FHR FuHt Pres Dilation -?-?-?-?-?-?-?-?-?-?-?-?- Effaced St Visit Note 09/21/21-?-?-?-?-?-?-?-?-?-?-?-?- 6w 2d 205 lb 120/79 -?-?-?-?-?-?-?-?-?-?-?-?- ? 170 ? ? -?-?-?-?-?-?-?-?-?-?-?-?- ? ? SM- CRL 6.7mm NOT cons with LMP 10/09/21-?-?-?-?-?-?-?-?-?-?-?-?- 8w 6d 205 lb 6 oz 130/84 Negative -?-?-?-?-?-?-?-?-?-?-?-?- Negative ? ? ? -?-?-?-?-?-?-?-?-?-?-?-?- ? ? SM- no vb cramping CRL measuring 7w6d with no FHT and no color doppler seen, discussed options ACOG First Trimester First Trimester: Desire for , Alcohol, Tobacco Cessation, Illicit/Recreational Drug/Substance Use, Intimate Partner Violence, Barriers to care, Unstable Housing, Communication Barriers, Environmental/Work Hazards, Anticipated Course of Care, Toxoplasmosis Precations, Use of Any medications, Sexual activity, Exercise, Dental Care, Sauna/Hot tub use, Seat Belt use, Childbirth classes/Hospital facilities, Travel, Indications for Ultrasound and Screening for Aneuploidy; Discussed Second Trimester Second Trimester: Signs and Symptoms of Labor, Selecting a care provider, Reproductive Life Planning & Contreception, Care Planning, Tobacco Cessation, Depression/Anxiety and Intimate Partner Violence Third Trimester Third Trimester: Pain Management Plans, Labor support person(s), Immediate Larc and Movement Monitoring; Discussed Trial of Labor after Counseling and Discussed Circumcision preference Diagnostics Diagnostics Diagnostics: ?? ? Chlamydia DNA (ROSANNE) Negative? (Negative) ?? ? N.gonorrhoeae DNA (ROSANNE) Negative? (Negative) Details: HIV: Urine Culture: Sequential Screen: NIPT Screen: ROS Const Reports as per HPI and Denies fever(s) ENT Reports system reviewed and no additional complaints, except as documented Card Reports system reviewed and no additional complaints, except as documented Resp Reports system reviewed and no additional complaints, except as documented GI Reports as per HPI Reports as per HPI Musc Reports system reviewed and no additional complaints, except as documented Skin/Breast Reports system reviewed and no additional complaints, except as documented Neuro Yes system reviewed and no additional complaints, except as documented Endo Reports system reviewed and no additional complaints, except as documented Exam Const General: healthy appearing, comfortable and no acute distress HENMT Head: normal to inspection and normocephalic Neck Neck: no lymphadenopathy noted Thyroid: thyroid normal Chest Chest palpation & inspection: normal inspection of the chest Resp Effort & Inspection: normal respiratory effort Cardio Rate: regular rate Rhythm: regular rhythm GI Inspection: normal to inspection Palpation: soft and nontender External Female Exam: normal external appearance Speculum Exam - Vagina: normal appearance of the vagina Bimanual Exam- Vagina & Uterus: uterine shape normal and non-tender Skin General: no rashes or lesions noted Neuro General: no focal motor deficits Extrem General: normal to inspection and no pedal edema Psych Appearance: grossly normal Results POC Urinalysis 2 Dip? (Clinic) Office Urine Glucose Negative ? ? Last Edit by Melida Larson on 10/09/21 15:36 Office Urine Protein Negative ? ? Last Edit by Melida Larson on 10/09/21 15:36 Coding Level of Care Code Off vis,est,level 4 Diagnoses ? Z3A.08 ? ? ? Weeks of gestation: 8 weeks Obesity affecting ? O99.210 Previous delivery affecting ? O34.219 Supervision of high-risk ? O09.90 History of gestational diabetes mellitus (GDM)? Z86.32 History of recurrent miscarriages? N96 Missed ? O02.1 Assessment and Plan Assessment and Plan (1) : ?Status:?Acute ?Qualifiers: ?Weeks of gestation:?8 weeks? Qualified Code(s):?Z3A.08 - 8 weeks gestation of ?Comment: plan NIPT screening.? declines carrier screen. (2) Obesity affecting : ?Status:?Acute ?Comment: 1 TM GCT planned.? encouraged health weight gain. (3) Previous delivery affecting : ?Status:?Acute ?Comment: x3, plan RLTCS (4) Supervision of high-risk : ?Status:?Acute ?Comment: ISACC 05/15/22 PC Pierre Galvan Grant Devang (5) History of gestational diabetes mellitus (GDM): ?Status:?Acute ?Comment: 1 hr gtt (6) History of recurrent miscarriages: ?Status:?Acute ?Comment: nl apl panel, progesterone supplementation through 14 weeks (7) Missed : ?Status:?Acute ?Comment: repeat apl panel ordered, plan ANORA, plan d and c.? repeat US 10/10. ? ? ? Orders: Orders POC Urinalysis 2 Dip? (Clinic) Today ? ? Transvaginal w/Preg US Today O03.9 - Complete or unspecified spontaneous without complication ? Plan Details Additional Comments: After discussing the patient's diagnosis and treatment plan options, patient wishes to proceed with surgical management.? I have discussed with the patient the risks, benefits, and alternatives of the procedure which include but are not limited to risks of anesthesia, bleeding, infection, possible damage to bowel, bladder, or surrounding vasculature which could lead to additional surgery to evaluate any complications.? Patient agrees to procedure and wishes to proceed.? ACOG/uptodate references given for additional information regarding procedure.? UPDATE- I have seen the patient and performed any clinically relevant updates to the history and physical exam. Dixie Swan MD
--- NOTE | 2021-10-10 15:16 | DCINST_ITS ---
Discharge Instructions Procedure D&C Diet Discharge Diet: No restrictions Activity Discharge Activity: Return to Normal Activity, May Shower and May Take a Tub Bath (after 1 week) May resume sexual activity in: 1-2 weeks Weight Bearing Status: Weight bearing as tolerated Lifting Restrictions: none Dressing / Incision Call your doctor if you observe: Fever of 101 or Higher, Using more than 1 pad per hour, Shortness of breath and Uncontrolled pain Follow Up Care Please Follow Up With: Dixie Swan MD When: Call [phone] to schedule appointment. Test Results: Test results from this visit will be discussed in further detail at your follow- up appointment, if applicable. Discharge Plan Admission Attending Provider: Dixie Swan Primary Care Provider: Gary Stevens Discharge Orders/Prescriptions Prescriptions: No Action PNV #[id number] 30 mg iron-10 mg iron-1 mg capsule 1 cap PO DAILY Unisom (doxylamine) 25 mg tablet 25 mg PO QHS PRN (Reason: Sleep) Vitamin B-6 50 mg capsule 50 mg PO DAILY Referrals / Follow Up: Gary Stevens MD [Primary Care Provider] - Disposition Disposition (needs filled in before D/C Order can be placed): Home, Self Care
--- NOTE | 2021-10-10 15:59 | SUR.PHASEII ---
pt complaining of chest pressure as this nurse brought pt back to room. pt stated it started after morphine was given. anesthesia aware. EKG ordered.
--- NOTE | 2021-10-10 16:06 | EKG12_ITS ---
Test Reason : CP Blood Pressure : / mmHG Vent. Rate : 067 BPM Atrial Rate : 067 BPM P-R Int : 130 ms QRS Dur : 088 ms QT Int : 422 ms P-R-T Axes : 023 025 013 degrees QTc Int : 445 ms Normal sinus rhythm Normal ECG When compared with ECG of 26-MAR-2019 06:00, No significant change was found Confirmed by CORRY OSHEA, CARIE ([id number]), desk editor RAFFAELE JIMENEZ ([id number]) on 10/12/2021 9:30:30 AM Referred By: Dixie Swan Confirmed By:CARIE WHEATLEY MD
--- NOTE | 2021-10-10 16:10 | SUR.PHASEI ---
EKG NSR, OK WITH DR BUSH FOR PT TO BE D/C
== END 2021-10-10 16:12 | disposition home or self-care (01) ==
LOC: US 09:28 → SDC 09:29 → AC 12:27
PROVIDERS: PCP Family Medicine; Referring Provider Obstetrics & Gynecology; Visit Provider Obstetrics & Gynecology
PROC: (CPT 59820; principal; 2021-10-10 14:15)
DX: O02.1 Missed abortion (principal); Z3A.08 8 weeks gestation of pregnancy; Z82.49 Family history of ischemic heart disease and other diseases of the circulatory system; N96 Recurrent pregnancy loss
CPT/HCPCS: 59820; 76817; 85025; 86850; 86900; 86901; 88305; 93005; J7120; J2405

== ENCOUNTER → 2021-10-23 | Outpatient (CLI) | payer BC, SELFPAY ==
[2021-10-23 18:28] LABS: T4 Free Direct 0.94 ng/dL (0.76-1.46); Thyroid Stim Hormone (TSH) 1.02 uIU/mL (0.358-3.74)
[2021-10-26 05:07] LABS: Dilute Prothrombin Time (dPT) 32.5 sec (0.0-47.6); Dilute Russell Viper Venom 33.5 sec (0.0-47.0); PTT-LA 31.4 sec (0.0-51.9); Thrombin Time 17.4 sec (0.0-23.0); dPT Confirm Ratio 1.05 Ratio (0.00-1.34)
[2021-10-26 12:53] LABS: Anti-Cardiolipin Ab, IgA, Qn < 9 APL U/mL (0-11); Anti-Cardiolipin Ab, IgG, Qn < 9 GPL U/mL (0-14); Anti-Cardiolipin Ab, IgM, Qn < 9 MPL U/mL (0-12); Beta-2-Glycoprotein I IgA <9 (0-25); Beta-2-Glycoprotein I IgG <9 (0-20); Beta-2-Glycoprotein I IgM <9 (0-32); Interpretation Comment: (.)
== END | disposition home or self-care (01) ==
LOC: LAB 16:27
PROVIDERS: PCP Family Medicine; Referring Provider Obstetrics & Gynecology; Visit Provider Obstetrics & Gynecology
DX: N96 Recurrent pregnancy loss (principal)
CPT/HCPCS: 36415; 84439; 84443; 86146; 86147

== ENCOUNTER → 2021-11-17 | Outpatient (CLI) | payer BC, SELFPAY ==
[2021-11-17 17:25] LABS: hCG Titer Quant., Serum 983 mIU/mL (1-3)
== END | disposition home or self-care (01) ==
LOC: LAB 16:40
PROVIDERS: PCP Family Medicine; Referring Provider Obstetrics & Gynecology; Visit Provider Obstetrics & Gynecology
DX: N96 Recurrent pregnancy loss (principal)
CPT/HCPCS: 36415; 84702

== ENCOUNTER → 2021-11-19 | Outpatient (CLI) | payer BC, SELFPAY ==
[2021-11-19 18:22] LABS: hCG Titer Quant., Serum 1768 mIU/mL (1-3)
== END | disposition home or self-care (01) ==
LOC: LAB 17:07
PROVIDERS: PCP Family Medicine; Visit Provider Obstetrics & Gynecology
DX: N96 Recurrent pregnancy loss (principal)
CPT/HCPCS: 36415; 84702

== ENCOUNTER → 2021-12-18 | Outpatient (CLI) | payer BC, SELFPAY ==
[2021-12-18 18:23] LABS: Amphetamine Urine VISTA NEGATIVE (<1000 ng/mL); Barbiturate Urine VISTA NEGATIVE (< 200 ng/mL); Benzodiazepine Urine VISTA NEGATIVE (< 200 ng/mL); Cocaine Urine VISTA NEGATIVE (< 300 ng/mL); Ecstacy Urine VISTA NEGATIVE (< 500 ng/mL); Methadone Urine VISTA NEGATIVE (< 300 ng/mL); PCP Urine VISTA NEGATIVE (< 25 ng/mL); THC Urine VISTA NEGATIVE (< 50 ng/mL); Vista UDS pH Range 7
[2021-12-20 22:07] LABS: Chlamydia By Nucleic Acid AMP Negative (Negative)
[2021-12-21 08:25] LABS: Gonococcus By Nucleic Acid AMP Negative (Negative)
== END | disposition home or self-care (01) ==
LOC: LABSPEC 16:58
PROVIDERS: PCP Family Medicine; Referring Provider Obstetrics & Gynecology; Visit Provider Obstetrics & Gynecology
DX: O09.90 Supervision of high risk pregnancy, unspecified, unspecified trimester (principal)
CPT/HCPCS: 80307; 87086; 87088; 87491; 87591

== ENCOUNTER → 2022-01-01 | Outpatient (CLI) | payer BC, SELFPAY ==
[2022-01-01 13:57] LABS: Basophil# 0.01 X10^3/uL; Basophil% 0.1 % (0-1); Eosinophil# 0.05 X10^3/uL; Eosinophils% 0.5 % (0-5); Hematocrit 39.8 % (37-47); Hemoglobin 12.9 g/dL (12.0-15.0); Lymphocyte % 18.2 % (19-41); Mean Corp Hgb Conc 32.4 g/dL (32-36); Mean Corpuscular Hgb 28.9 pg (27.0-32.0); Mean Corpuscular Volume 89.2 fL (81-99); Mean Platelet Vol. 9.9 fl (6.2-12.0); Monocyte# 0.53 X10^3/uL; Monocyte% 5.7 % (0-10); NRBC Flagged by Analyzer 0 % (0-5); Neutrophil % 75.2 % (47-70); Platelet Count 291 K/mm3 (150-450); RBC Distribution Width CV 12.3 % (11.6-14.6); RBC Distribution Width SD 40.3 fl (35.1-43.9); Red Blood Count 4.46 M/mm3 (4.2-5.4); White Blood Count 9.3 K/mm3 (4.4-11.0)
[2022-01-01 14:26] LABS: Glucose Challenge Gest 1H 50g 144 mg/dL (70-140)
[2022-01-01 14:45] LABS: NATERA MAILED SPECIMEN
[2022-01-01 15:08] LABS: HIV - WCH Non-Reactive (Nonreactive); Hepatitis B Surface Antigen Non-Reactive (Nonreactive); Hepatitis C Antibody Non-Reactive (Nonreactive); Rubella IgG Reactive (Nonreactive); Syphilis Antibodies Non-reactive
== END | disposition home or self-care (01) ==
PROVIDERS: PCP Family Medicine; Referring Provider Obstetrics & Gynecology; Visit Provider Obstetrics & Gynecology
DX: O09.521 Supervision of elderly multigravida, first trimester (principal)
CPT/HCPCS: 36415; 82950; 85025; 86703; 86762; 86780; 86803; 86850; 86900; 86901; 87340

== ENCOUNTER → 2022-01-08 | Outpatient (CLI) | payer BC, SELFPAY ==
[2022-01-08 07:57] LABS: Glucose GTT-Gestation. Fasting 108 mg/dL (<105)
[2022-01-08 08:34] LABS: Glucose GTT-Gestational 1 Hr 207 mg/dL (<190)
[2022-01-08 10:08] LABS: Glucose GTT-Gestational 2 Hr 163 mg/dL (<165)
[2022-01-08 11:05] LABS: Glucose GTT-Gestational 3 Hr 83 L (<145)
== END | disposition home or self-care (01) ==
PROVIDERS: PCP Family Medicine; Referring Provider Obstetrics & Gynecology; Visit Provider Obstetrics & Gynecology
DX: Z13.1 Encounter for screening for diabetes mellitus (principal)
CPT/HCPCS: 36415; 82951; 82952

== ENCOUNTER 2022-01-19 06:06 | Day surgery (SDC) | payer BC, SELFPAY ==
--- NOTE | 2022-01-18 | POC_PTH ---
PATIENT: MITCHELL CONNER LOC: [facility] U#:[id number] AGE/SX: 36/F ROOM: RE01/19/[address]: Dr. Dixie Swan MD : 1985 BED: DIS: 01/19/2022 SPEC #: [id number] RECD: 01/19/22 08:59 STATUS: AUDI RELamin #: [id number] GABRIELA: 01/18/22 00:[address]: Dixie Swan DEPT: SURGICAL PATHOLOGY RECD BY: John Domingo ENTERED: 01/19/22 08:59 SP TYPE: PROD CONC OTHR DR: Dr. Gary Stevens MD Tissues: Product of conception, NOS Procedures: Surgery Specimen Level IV HEADER OPERATION: Suction dilation and curettage PRE-OP DIAGNOSIS: Missed conception TISSUE SUBMITTED: Products of conception MICROSCOPIC DIAGNOSIS Endometrium, curettage: Chorionic villi, decidualized stroma and trophoblastic cells consistent with products of conception. See comment. AM:rg 01/22/2022 COMMENT The results of Anora study will be reported separately. MICROSCOPIC DESCRIPTION Slides are reviewed. GROSS DESCRIPTION Received in fixative is one container labeled with the patient's name and designated products of conception. The specimen consists of multiple irregular fragments of pink-lemus soft tissue that in aggregate measure 11 x 8 x 0.4 cm. Junior Bookkeeper sections are submitted in one cassette. Junior Bookkeeper portions are submitted for Anora testing. / AM:josefina 01/19/2022 TC:5 CPT: 00681
[2022-01-19] VITALS (7 sets, daily range): BP systolic 121–133; BP diastolic 60–77; PULSE 89–104; RESP 15–16; TEMP 36.8–37.4; O2SAT 94–100; BMI 38.2
[2022-01-19] MEDS: Doxycycline 100 MG CAPSULE PO (06:55)
[2022-01-19] MEDS: Lactated Ringers 1,000 ML 125 ML IV (07:00)
--- NOTE | 2022-01-19 07:34 | HP.PCM.OB_ITS ---
HPI - General HPI Narrative MELIDA CONNER, is a 36 F who presents with recurrent miscarriage supposed to be 13 weeks and measuring 11-12. she has been on lovenox and progesterone and saw infertility for a consultation. she has a new diagnosis of diabetes but blood sugars have been mildly elevated fasting 110s and 2 hours 140-150. she denies any bleeding or abnormal discharge or cramping. Maternal Data Information ISACC Calculator 2 Estimated Delivery Date Method Current WG Current Estimate 07/25/22 Ultrasound #1 13w 2d [facility] Medical History (Updated 01/19/22 @ 07:[address] Dixie Swan MD) Abdominal hernia Abnormal glucose affecting Abnormal magnetic resonance cholangiopancreatography (MRCP) Cardiac murmur Gallstones History of gestational diabetes Migraine headache Non-smoker Wears contact lenses Home Medications vitamin#30 30 mg iron-10 mg iron-folic acid 1 mg-omg3 capsule 1 cap PO DAILY 04/03/21 [History Last Taken Unknown] progesterone micronized 200 mg capsule (Prometrium) 400 mg vaginal BID 30 days #120 caps 11/17/21 [Rx Last Taken Unknown] levothyroxine 25 mcg capsule 25 mcg PO DAILY 12/15/21 [History Last Taken Unknown] aspirin 81 mg chewable tablet 81 mg PO DAILY 01/01/22 [History Last Taken Unknown] doxylamine succinate 25 mg tablet (Unisom (doxylamine)) 25 mg PO QHS PRN Morning Sickness 01/01/22 [History Last Taken Unknown] pyridoxine (vitamin B6) 50 mg tablet 50 mg PO DAILY 01/01/22 [History Last Taken Unknown] blood sugar diagnostic (True Metrix Glucose Test Strip) #100 ea 01/08/22 [Rx Last Taken Unknown] blood-glucose meter (True Metrix Air Glucose Meter) #1 ea 01/08/22 [Rx Last Taken Unknown] Allergy/AdvReac Type Severity Reaction Status Date / Time amoxicillin [Amoxicillin] Allergy Hives Verified 01/19/22 06:35 Penicillins Allergy Hives Verified 01/19/22 06:35 Family History Mother Diabetes Father Hypertension Surgical History (Updated 01/19/22 @ 06:51 by Suad Helms) History of section (~2010) History of section (~2013) History of dilation and curettage Hx laparoscopic cholecystectomy Social History adopted: No household members: spouse and children housing: house number of children: 3 current occupational status: employed 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 [employer] current occupational exposures/hazards: No pets and animals: Yes (not managing litterbox) pets and animals: cat(s) and dog(s) history of recent travel: No sexually active: Yes Smoking Status: Never smoker alcohol intake: never substance use type: does not use well-balanced diet: daily or most days caffeine: Yes Type: coffee Number of servings: 1 eating out: 1-3 times/week during the past year weight has: decreased > 10 lbs what type of physical activity do you participate in: walking and weight training frequency: 3-4 times per week duration: 45-60 minutes/day naldo/temple: Elva seatbelt use: always do you feel safe at home: Yes additional social history: [place] [employer] Patient works for [employer] History 8 Elective abortions Hx Para 3 Spontaneous abortions 4 Hx # Term Pregnancies Ectopic pregnancies Hx # Pregnancies Multiple births # of living children 3 Past Pregnancies Del. Date Name GA/Weeks Outcome Route Bth Weight Gen Labor Lgth Anesthesia Del Locatn Provider FOB Unknown 2010 Miles 39 live - full term 7lbs 2oz Male [facility] Dr. Ferro Unknown 2013 Pierre 39 live - full term 7lbs 4oz [facility]. Aleman Unknown 2021- September spontaneous Male Unknown April 2021 spontaneous Unknown May 2021 spontaneous Unknown June 2021 spontaneous 02/05/19 Mamadou 39 live - full term 7lbs 2oz Male [facility] CARMELITA Delivery Date: Last Updated by: Francoise Adams distress- emergency c/s Delivery Date: Last Updated by: Francoise Adams scheduled c/s Delivery Date: Last Updated by: Francoise Ly D&C, Anora testing confirmed normal male Visit Details Expected Delivery Route/Plan Labor Preferences- CB/BF classes: [] labor support person: [] labor intervention preferences: [] pain management options preferred: [] cut cord/dad catch: [] : [] PP control planned: [] discussed possible routes of delivery and associated risks: [] special requests: [] Plans Covid status: [] Flu vaccine: [] Tdap vaccine: [] Rhogam: [] LARC form signed: [] Problem list reviewed and updated with the most current plan of care details and appropriate orders placed. Relevant counseling for the gestational age provided. Continue routine care and follow up unless otherwise noted in visit notes/problem list details OB Flowsheet Initial Weight: Not Recorded Date -?-?-?-?-?-?-?-?-?-?-?-?- EGA Weight BP Urine Prot -?-?-?-?-?-?-?-?-?-?-?-?- Glucose FHR FuHt Pres Dilation -?-?-?-?-?-?-?-?-?-?-?-?- Effaced St Visit Note 12/18/21 -?-?-?-?-?-?-?-?-?-?-?-?- 8w 5d 208 lb 4 oz 123/81 -?-?-?-?-?-?-?-?-?-?-?-?- 160 -?-?-?-?-?-?-?-?-?-?-?-?- SM- CRL cons wit h previous ISACC 01/01/22 -?-?-?-?-?-?-?-?-?-?-?-?- 10w 5d 213 lb 143/73 Negative -?-?-?-?-?-?-?-?-?-?-?-?- Negative 168 -?-?-?-?-?-?-?-?-?-?-?-?- SM- no vb huycarlozpatrick ng doing well, labs drawn 01/18/22 -?-?-?-?-?-?-?-?-?-?-?-?- 13w 1d 217 lb 141/76 Negative -?-?-?-?--?-?-?-?-?-?-?-?- Negative 0 -?-?-?-?-?-?-?-?-?-?-?-?- JV- no heart ton es on ultrasound today. CRL consistent with 12 weeks. there is edema surrouding the fetus . internal and external ultrasound performed. 01/19/22 -?-?-?-?-?-?-?-?-?-?-?-?- 13w 2d 216 lb 0.848 oz 128/60 -?-?-?-?-?-?-?-?-?-?-?-?- -?-?-?-?-?-?-?-?-?-?-?-?- ROS Constitutional Constitutional: Reports systems reviewed and no addt'l complaints, except as documented; Denies as per HPI, change in weight, fatigue, fever(s), malaise, weakness or other Eyes Eyes: Reports systems reviewed and no addt'l complaints, except as documented; Denies as per HPI, change in vision or other ENT HEENT: Reports systems reviewed and no addt'l complaints, except as documented Respiratory/Chest Respiratory/Chest: Reports systems reviewed and no addt'l complaints, except as documented Gastrointestinal Gastrointestinal: Reports systems reviewed and no addt'l complaints, except as documented and as per HPI Genitourinary Genitourinary: Reports as per HPI Musculoskeletal Musculoskeletal: Reports systems reviewed and no addt'l complaints, except as documented Neurologic Neurologic: Reports systems reviewed and no addt'l complaints, except as documented Psychiatric Psychiatric: Reports systems reviewed and no addt'l complaints, except as documented Endocrine Endocrinology: Reports systems reviewed and no addt'l complaints, except as documented Hematologic/Lymphatic Hematologic/Lymphatic: Reports systems reviewed and no addt'l complaints, except as documented Vital Signs Vital Signs Vital Signs: 01/19/22 06:50 01/19/22 06:50 Temperature 99.3 F H Temperature Source Temporal Pulse Rate 91 Respiratory Rate 15 Respiratory Pattern Normal Blood Pressure 128/60 H Blood Pressure Mean 82 Blood Pressure Source Monitor Blood Pressure Position Semi-Fowlers Blood Pressure Location Left Arm Pulse Ox 100 Oxygen Delivery Method Room Air Weight Weight: 216 lb 0.848 oz Body Mass Index (BMI) 38.2 Physical Exam Const alert, oriented x3 and no apparent distress HEENT normocephalic Head and Scalp: atraumatic Eyes EOMs intact bilaterally and conjunctivae normal Neck full ROM, no lymphadenopathy, supple and thyroid normal General: trachea midline Lymph Lymphatic: no lymphadenopathy noted Resp normal respiratory effort, no retractions, no use of accessory muscles and clear to auscultation bilaterally Cardio regular rhythm GI normal to inspection, nondistended, normoactive bowel sounds, soft to palpation, non-distended and no masses Inspection: Negative for abdominal distention Back/Spine no CVA tenderness Extremity normal to inspection Skin no rashes or lesions noted Neuro moves all extremities and deep tendon reflexes 2+ bilaterally Psych mental status grossly normal Labs Labs Labs: Blood Type AB POSITIVE Antibody Screen NEGATIVE Hct 38.8 % (37-47) Hgb 12.6 g/dL (12.0-15.0) Obstetrics US Syphilis Total Ab Non-reactive Rubella IgG Antibody Reactive (Nonreactive) Hep Bs Antigen Non-Reactive (Nonreactive) Chlamydia DNA (ROSANNE) Negative (Negative) Neisseria gonorrhoeae DNA (ROSANNE) Negative (Negative) HIV 1&2 Antibody Non-Reactive (Nonreactive) Glucose 1 Hr 50 gm 144 mg/dL (70-140) H Group B Strep DNA Negative (Negative) Rhogam given: No Miscellaneous Test Assessment & Plan (1) History of recurrent miscarriages: COMMENT: repeat neg apl panel, progesterone supplementation through 14 weeks planned, 81 mg ASA, [facility] consult for HSG and additional workup/intervention (2) : QUALIFIERS: Weeks of gestation: 13 weeks Qualified Code(s): Z3A.13 - 13 weeks gestation of COMMENT: NIPT low risk, discussed carrier testing, 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 prev cs x 3 (6) Pre-existing diabetes mellitus affecting in second trimester, antepartum: (7) Abnormal glucose affecting : COMMENT: needs 3 hr. GTT, failed 3 Hr GTT (8) Missed : COMMENT: no heart tones at 12 weeks gestation. proceed with surgical management. recurrent workup ordered again plan FU with mfm consult after. PLAN: Plan After discussing the patient's diagnosis and treatment plan options, patient wishes to proceed with surgical management. I have discussed with the patient the risks, benefits, and alternatives of the procedure which include but are not limited to risks of anesthesia, bleeding, infection, possible damage to bowel, bladder, or surrounding vasculature which could lead to additional surgery to evaluate any complications. Patient agrees to procedure and wishes to proceed. ACOG/uptodate references given for additional information regarding procedure.
--- NOTE | 2022-01-19 07:49 | PCM.OPRPT ---
Problems Associated Problem List Diagnoses (1) History of recurrent miscarriages: (2) : (3) Supervision of high risk , antepartum: (4) Obesity affecting : (5) Previous delivery affecting : (6) Pre-existing diabetes mellitus affecting in second trimester, antepartum: (7) Missed : (8) Abnormal glucose affecting : Report of Operation Date of Procedure: 01/19/22 Pre-Operative Diagnosis: see problem list Post-Operative Diagnosis: same Surgery/Procedure Performed:: Suction dilation and curettage Description of Surgical Findings:: no FHT present, Nonviable 12 weeks driver/refuse collector: None Type of Anesthesia: Local MAC Special Medications: none Specimen's removed: POC Drains: none Estimated Blood Loss (mL): 50 Fluids Replaced: crystalloid Description of Procedure: Patient was taken to the operating room and placed under MAC local anesthesia. She was prepped and draped in the normal sterile fashion the dorsal lithotomy position. Bladder was drained of clear urine and anterior lip of the cervix was grasped and the uterus sounded to 12cm. Cervix was progressively dilated to allow passage of a 12mm suction curette. Progressive passes were made removing the retained products of conception without complication. Sharp curettage confirmed complete removal of the retained products. All instruments were removed from the vagina and excellent hemostasis was noted and the patient was taken to recovery in stable condition. Grafts/Implants Used: none Complications none Admit VTE Documentation VTE Present on Admission: No VTE Mechan Device Prophylaxis: SCD's Procedures Urinary/Genital [id number]: 14696 Surg Trtmt missed Ab, 1TM
--- NOTE | 2022-01-19 07:52 | DCINST_ITS ---
Discharge Instructions Procedure D&C Diet Discharge Diet: No restrictions Activity Discharge Activity: Return to Normal Activity, May Shower and May Take a Tub Bath (after 1 week) May resume sexual activity in: 1-2 weeks Weight Bearing Status: Weight bearing as tolerated Lifting Restrictions: none Dressing / Incision Call your doctor if you observe: Fever of 101 or Higher, Using more than 1 pad per hour, Shortness of breath and Uncontrolled pain Follow Up Care Please Follow Up With: Dixie Swan MD When: Call [phone] to schedule appointment. Test Results: Test results from this visit will be discussed in further detail at your follow- up appointment, if applicable. Discharge Plan Admission Attending Provider: Dixie Swan Primary Care Provider: Gary Stevens Discharge Orders/Prescriptions Prescriptions: No Action PNV #[id number] acid-omega3 30 mg iron-10 mg iron-1 mg capsule 1 cap PO DAILY levothyroxine 25 mcg capsule 25 mcg PO DAILY Unisom (doxylamine) 25 mg tablet 25 mg PO QHS PRN (Reason: Morning Sickness) pyridoxine (vitamin B6) 50 mg tablet 50 mg PO DAILY aspirin 81 mg tablet,chewable 81 mg PO DAILY progesterone micronized [Prometrium] 200 mg capsule 400 mg vaginal BID 30 Days Qty: 120 3RF Rx Instructions: continue through 14 weeks (DME) blood-glucose meter [True Metrix Air Glucose Meter[place] [facility] [place] Instructions .ROUTE .MEDSUPPLY Qty: 1 0RF Rx Instructions: As directed (DME) True Metrix Glucose Test Strip Strip See Rx Instructions .ROUTE .MEDSUPPLY Qty: 100 4RF Rx Instructions: As directed Referrals / Follow Up: Gary Stevens MD [Primary Care Provider] - Disposition Disposition (needs filled in before D/C Order can be placed): Home, Self Care
[2022-09-13 11:48] LABS: Pathology Specimen OB SEE PATHOLOGY REPORT
== END 2022-01-19 08:30 | disposition home or self-care (01) ==
LOC: SDC 06:07 → AC 06:08
PROVIDERS: PCP Family Medicine; Referring Provider Obstetrics & Gynecology; Visit Provider Obstetrics & Gynecology
PROC: (CPT 59820; principal; 2022-01-19 07:30)
DX: O02.1 Missed abortion (principal); E11.65 Type 2 diabetes mellitus with hyperglycemia; Z3A.13 13 weeks gestation of pregnancy; O24.112 Pre-existing type 2 diabetes mellitus, in pregnancy, second trimester; O34.219 Maternal care for unspecified type scar from previous cesarean delivery; Z79.82 Long term (current) use of aspirin
CPT/HCPCS: 59820; 88305; J7120; J2405

== ENCOUNTER → 2022-03-12 | Outpatient (CLI) | payer BC, SELFPAY ==
--- NOTE | 2022-03-12 08:03 | MRI_ITS ---
EXAM: MR ABDOMEN WITHOUT AND WITH INTRAVENOUS CONTRAST : 1985 CLINICAL INDICATION: gallbladder dysplasia -- TECHNIQUE: Multiplanar and multisequence MR images of the abdomen without and with intravenous contrast. 3-D postprocessing was obtained. CONTRAST: IV 20 cc Clariscan COMPARISON: May 15, 2021 FINDINGS: LOWER THORAX: Unremarkable. No pleural effusion. LIVER: Unremarkable. Normal morphology. No focal mass. GALLBLADDER AND BILE DUCTS: The gallbladder is surgically absent. No intra or extrahepatic ductal dilatation is visualized. No intraluminal filling defects are seen. PANCREAS: Unremarkable. No focal cystic or solid mass. SPLEEN: Unremarkable. Normal size without focal cystic or solid mass. ADRENALS: Unremarkable. No nodules. KIDNEYS AND URETERS: Unremarkable. Normal renal size and position. No hydronephrosis. INTRAPERITONEAL SPACE: Unremarkable. No ascites or other fluid collection. No free air. There is nonvisualization of the appendix. VASCULATURE: Unremarkable. Abdominal aorta is non-dilated. LYMPH NODES: No enlarged lymph nodes. OTHER FINDINGS: No abnormal contrast enhancement. MRI/MRI Abd WITH and W/O Contrast IMPRESSION: Status post cholecystectomy otherwise within normal limits MRI/MRCP of the upper abdomen. Electronically Signed: Zena Cooney MD at 9:31 EST ,
== END | disposition home or self-care (01) ==
PROVIDERS: PCP Family Medicine; Referring Provider Surgery; Visit Provider Surgery
DX: Z90.49 Acquired absence of other specified parts of digestive tract (principal); R93.5 Abnormal findings on diagnostic imaging of other abdominal regions, including retroperitoneum
CPT/HCPCS: 74183; A9575; A4216

== ENCOUNTER → 2022-08-29 | Outpatient (CLI) | payer BC, SELFPAY ==
[2022-08-31 22:11] LABS: Chlamydia By Nucleic Acid AMP Negative (Negative); Gonococcus By Nucleic Acid AMP Negative (Negative)
== END | disposition home or self-care (01) ==
LOC: LABSPEC 15:13
PROVIDERS: PCP Family Medicine; Referring Provider Obstetrics & Gynecology; Visit Provider Obstetrics & Gynecology
DX: O09.521 Supervision of elderly multigravida, first trimester (principal)
CPT/HCPCS: 87086; 87088; 87491; 87591

== ENCOUNTER → 2022-09-06 | Outpatient (CLI) | payer BC, SELFPAY ==
[2022-09-06 14:01] LABS: Absolute Lymphocyte Count 1.13 X10^3/uL (0.83-4.51); Absolute Neutrophil Count 12.2 X10^3/uL (2.0-7.7); Basophil# 0.02 X10^3/uL; Basophil% 0.1 % (0-1); Eosinophil# 0.01 X10^3/uL; Eosinophils% 0.1 % (0-5); Hematocrit 41.4 % (37-47); Hemoglobin 13.3 g/dL (12.0-15.0); Lymphocyte # 1.13 X10^3/ul (0.83-4.51); Lymphocyte % 8.1 % (19-41); Mean Corp Hgb Conc 32.1 g/dL (32-36); Mean Corpuscular Hgb 28.4 pg (27.0-32.0); Mean Corpuscular Volume 88.3 fL (81-99); Monocyte# 0.45 X10^3/uL; Monocyte% 3.2 % (0-10); NRBC Flagged by Analyzer 0 % (0-5); Neutrophil # 12.17 X10^3/uL (2.7-7.7); Neutrophil % 87.9 % (47-70); Platelet Count 308 K/mm3 (150-450); RBC Distribution Width CV 13.4 % (11.6-14.6); RBC Distribution Width SD 43.4 fl (35.1-43.9); Red Blood Count 4.69 M/mm3 (4.2-5.4); White Blood Count 13.9 K/mm3 (4.4-11.0)
[2022-09-06 14:45] LABS: NATERA MAILED SPECIMEN
[2022-09-06 15:53] LABS: HIV - WCH Non-Reactive (Nonreactive); Hepatitis B Surface Antigen Non-Reactive (Nonreactive); Hepatitis C Antibody Non-Reactive (Nonreactive); Rubella IgG Reactive (Nonreactive); Syphilis Antibodies Non-reactive
== END | disposition home or self-care (01) ==
LOC: PAVLAB 13:32
PROVIDERS: PCP Family Medicine; Referring Provider Obstetrics & Gynecology; Visit Provider Obstetrics & Gynecology
DX: O09.521 Supervision of elderly multigravida, first trimester (principal); Z3A.00 Weeks of gestation of pregnancy not specified
CPT/HCPCS: 36415; 85025; 86703; 86762; 86780; 86803; 86850; 86900; 86901; 87340

== ENCOUNTER → 2022-10-19 | Outpatient (CLI) | payer BC, SELFPAY ==
[2022-10-19 17:57] LABS: Hemoglobin A1c 5.6 % (3.8-5.6)
[2022-10-19 18:00] LABS: Free T3 2.3 pg/mL (2.18-3.98); T4 Free Direct 0.92 ng/dL (0.76-1.46); Thyroid Stim Hormone (TSH) 0.54 uIU/mL (0.358-3.74)
[2022-10-22 17:13] LABS: Anti-Thyroglobulin AB < 1.0 IU/mL (0.0-0.9); Thyroglobulin, Serum Qt. 18.3 ng/mL (1.5-38.5); Thyroid Peroxidase AB < 9 IU/mL (0-34)
== END | disposition home or self-care (01) ==
PROVIDERS: Obstetrics & Gynecology; PCP Family Medicine; Referring Provider Obstetrics & Gynecology; Visit Provider Obstetrics & Gynecology
DX: N97.9 Female infertility, unspecified (principal); E88.81 Metabolic syndrome and other insulin resistance
CPT/HCPCS: 36415; 83036; 84432; 84439; 84443; 84481; 86376; 86800

== ENCOUNTER → 2022-11-29 | Outpatient (CLI) | payer BC, SELFPAY ==
[2022-11-29 11:49] LABS: Absolute Lymphocyte Count 1.98 X10^3/uL (0.83-4.51); Absolute Neutrophil Count 9.5 X10^3/uL (2.0-7.7); Basophil# 0.03 X10^3/uL; Basophil% 0.2 % (0-1); Eosinophil# 0.03 X10^3/uL; Eosinophils% 0.2 % (0-5); Hematocrit 35.5 % (37-47); Hemoglobin 11.3 g/dL (12.0-15.0); Lymphocyte # 1.98 X10^3/ul (0.83-4.51); Mean Corp Hgb Conc 31.8 g/dL (32-36); Mean Corpuscular Hgb 28.7 pg (27.0-32.0); Mean Corpuscular Volume 90.1 fL (81-99); Mean Platelet Vol. 10.2 fl (6.2-12.0); Monocyte# 0.74 X10^3/uL; NRBC Flagged by Analyzer 0 % (0-5); Neutrophil # 9.48 X10^3/uL (2.7-7.7); Neutrophil % 76.7 % (47-70); Platelet Count 245 K/mm3 (150-450); RBC Distribution Width CV 13.2 % (11.6-14.6); RBC Distribution Width SD 43.8 fl (35.1-43.9); Red Blood Count 3.94 M/mm3 (4.2-5.4); White Blood Count 12.4 K/mm3 (4.4-11.0)
== END | disposition home or self-care (01) ==
PROVIDERS: Referring Provider Obstetrics & Gynecology; Visit Provider Obstetrics & Gynecology
DX: Z34.90 Encounter for supervision of normal pregnancy, unspecified, unspecified trimester (principal)
CPT/HCPCS: 36415; 85025

== ENCOUNTER → 2023-01-10 | Outpatient (CLI) | payer BC, SELFPAY ==
[2023-01-10 12:57] LABS: Absolute Lymphocyte Count 1.53 X10^3/uL (0.83-4.51); Absolute Neutrophil Count 6.9 X10^3/uL (2.0-7.7); Basophil# 0.02 X10^3/uL; Basophil% 0.2 % (0-1); Eosinophil# 0.03 X10^3/uL; Eosinophils% 0.3 % (0-5); Hematocrit 32.6 % (37-47); Hemoglobin 10.4 g/dL (12.0-15.0); Lymphocyte # 1.53 X10^3/ul (0.83-4.51); Lymphocyte % 16.9 % (19-41); Mean Corp Hgb Conc 31.9 g/dL (32-36); Mean Corpuscular Hgb 28.3 pg (27.0-32.0); Mean Corpuscular Volume 88.6 fL (81-99); Mean Platelet Vol. 10.4 fl (6.2-12.0); Monocyte# 0.53 X10^3/uL; Monocyte% 5.8 % (0-10); NRBC Flagged by Analyzer 0 % (0-5); Platelet Count 228 K/mm3 (150-450); RBC Distribution Width CV 12.9 % (11.6-14.6); RBC Distribution Width SD 42.4 fl (35.1-43.9); Red Blood Count 3.68 M/mm3 (4.2-5.4); White Blood Count 9.1 K/mm3 (4.4-11.0)
[2023-01-10 13:39] LABS: HIV - WCH Non-Reactive (Nonreactive); Syphilis Antibodies Non-reactive
== END | disposition home or self-care (01) ==
LOC: PAVLAB 12:41
PROVIDERS: PCP Family Medicine; Referring Provider Obstetrics & Gynecology; Visit Provider Obstetrics & Gynecology
DX: O09.521 Supervision of elderly multigravida, first trimester (principal); Z3A.00 Weeks of gestation of pregnancy not specified
CPT/HCPCS: 36415; 85025; 86703; 86780

== ENCOUNTER → 2023-01-15 | Outpatient (CLI) | payer BC, SELFPAY | END | disposition home or self-care (01) | LOC: LABSPEC 16:12 | PROVIDERS: PCP Family Medicine; Referring Provider Obstetrics & Gynecology; Visit Provider Obstetrics & Gynecology | DX: O23.599 Infection of other part of genital tract in pregnancy, unspecified trimester (principal); N76.0 Acute vaginitis; Z3A.00 Weeks of gestation of pregnancy not specified | CPT/HCPCS: 87070; 87205 ==

== ENCOUNTER → 2023-01-28 | Outpatient (CLI) | payer BC, SELFPAY ==
[2023-01-28 13:54] LABS: Protein, Urine (Random) 56.6 mg/dL (<11.9); Protein:Creat Ratio 194 mg/g CRE (0-200)
== END | disposition home or self-care (01) ==
LOC: LABSPEC 13:29
PROVIDERS: PCP Family Medicine; Referring Provider Obstetrics & Gynecology; Visit Provider Obstetrics & Gynecology
DX: O12.10 Gestational proteinuria, unspecified trimester (principal); Z3A.00 Weeks of gestation of pregnancy not specified
CPT/HCPCS: 82570; 84156

== ENCOUNTER → 2023-03-07 | Outpatient (CLI) | payer BC, SELFPAY ==
--- NOTE | 2023-03-07 18:21 | US_ITS ---
INDICATION: well being EXAMINATION: Ultrasound US Biophysical Profile W/O Nonst TECHNIQUE: Transabdominal pelvic ultrasound was performed. COMPARISON: None during this LMP: Unknown. Beta-hCG: Unknown. Provided EGA: 36 weeks, 2 days. Estimated date of delivery: 04/02/2023 FINDINGS: HEART MOTION is 144 bpm. AMNIOTIC FLUID INDEX (JONES): 18.9 BIOPHYSICAL PROFILE (BPP): 11/06 -- Breathin/2. -- Movement: 2/2. -- Tone: 2/2. --JONES: 2/2. PRESENTATION: Cephalic PLACENTA: Posterior. There is no placenta previa or abruption. US/Biophysical Prof W/O Non Stres IMPRESSION: Single live intrauterine . Normal biophysical profile. Electronically Signed: Per Loving MD at 18:59 EST ,
== END | disposition home or self-care (01) ==
LOC: US 18:21
PROVIDERS: PCP Family Medicine; Visit Provider Obstetrics & Gynecology
DX: O24.319 Unspecified pre-existing diabetes mellitus in pregnancy, unspecified trimester (principal); O09.521 Supervision of elderly multigravida, first trimester; Z3A.00 Weeks of gestation of pregnancy not specified; O26.20 Pregnancy care for patient with recurrent pregnancy loss, unspecified trimester
CPT/HCPCS: 76819

== ENCOUNTER → 2023-03-11 | Outpatient (CLI) | payer BC, SELFPAY | END | disposition home or self-care (01) | LOC: LABSPEC 13:04 | PROVIDERS: PCP Family Medicine; Referring Provider Obstetrics & Gynecology; Visit Provider Obstetrics & Gynecology | DX: O09.521 Supervision of elderly multigravida, first trimester (principal); Z3A.00 Weeks of gestation of pregnancy not specified | CPT/HCPCS: 87081 ==

== ENCOUNTER → 2023-03-12 | Outpatient (CLI) | payer BC, SELFPAY ==
[2023-03-14 12:09] LABS: SJOGREN'S Anti-SS-A test < 0.2 AI (0.0-0.9); SJOGREN'S Anti-SS-B test < 0.2 AI (0.0-0.9)
== END | disposition home or self-care (01) ==
PROVIDERS: PCP Family Medicine; Referring Provider Obstetrics & Gynecology; Visit Provider Obstetrics & Gynecology
DX: L29.9 Pruritus, unspecified (principal); M32.9 Systemic lupus erythematosus, unspecified
CPT/HCPCS: 36415; 86235

== ENCOUNTER 2023-03-19 05:10 | Inpatient (IN) | payer BC, SELFPAY ==
[2023-03-19] VITALS (23 sets, daily range): BP systolic 91–155; BP diastolic 56–86; PULSE 67–106; RESP 14–20; TEMP 36.2–37.1; O2SAT 95–100; BMI 42.0; BMI 41.8
[2023-03-19] MEDS: Lactated Ringers 1,000 ML 999 ML IV (05:25)
[2023-03-19 05:37] LABS: Absolute Lymphocyte Count 1.69 X10^3/uL (0.83-4.51); Absolute Neutrophil Count 6.6 X10^3/uL (2.0-7.7); Basophil# 0.02 X10^3/uL; Basophil% 0.2 % (0-1); Eosinophil# 0.05 X10^3/uL; Eosinophils% 0.5 % (0-5); Hematocrit 37.3 % (37-47); Hemoglobin 11.8 g/dL (12.0-15.0); Lymphocyte # 1.69 X10^3/ul (0.83-4.51); Lymphocyte % 18.4 % (19-41); Mean Corp Hgb Conc 31.6 g/dL (32-36); Mean Corpuscular Hgb 27.1 pg (27.0-32.0); Mean Corpuscular Volume 85.7 fL (81-99); Mean Platelet Vol. 11.2 fl (6.2-12.0); Monocyte# 0.75 X10^3/uL; Monocyte% 8.2 % (0-10); NRBC Flagged by Analyzer 0 % (0-5); Neutrophil # 6.61 X10^3/uL (2.7-7.7); Neutrophil % 71.8 % (47-70); POSITIVE COUNT YES; Platelet Count 195 K/mm3 (150-450); RBC Distribution Width CV 13.8 % (11.6-14.6); RBC Distribution Width SD 42.8 fl (35.1-43.9); Red Blood Count 4.35 M/mm3 (4.2-5.4); White Blood Count 9.2 K/mm3 (4.4-11.0)
[2023-03-19] MEDS: Acetaminophen 500 MG Tablet 1000 MG PO ×3 (05:51→18:19)
[2023-03-19 05:53] LABS: Bedside Glucose 92 mg/dL (74-106)
[2023-03-19 06:11] LABS: Differential Comment SCANNED; Differential Indicated SCAN CRITERIA MET
[2023-03-19] MEDS: Lactated Ringers 1,000 ML 150 ML IV (06:28)
[2023-03-19] MEDS: Sodium Citrate/Citric Acid 30 ML UDC PO (06:55)
--- NOTE | 2023-03-19 06:58 | HP.PCM.OB_ITS ---
HPI - General General Date of Admission: 03/19/23 HPI Narrative MITCHELL CONNER, is a 37 F who presents for RLTCS and BS. Maternal Data Information ISACC Calculator Estimated Delivery Date Method Current WG Current Estimate 04/02/23 Ultrasound #2 38w 0d Other Estimates 04/08/23 LMP (Certain) 37w 1d 04/07/23 Ultrasound #1 37w 2d PFSH PFS Medical History Abdominal hernia Abnormal glucose affecting Abnormal magnetic resonance cholangiopancreatography (MRCP) Abnormal MRI of the abdomen Cardiac murmur Gallstones History of gestational diabetes History of recurrent miscarriages Migraine headache Missed Non-smoker Wears contact lenses Home Medications aspirin 81 mg tablet,delayed release 162 mg PO DAILY 08/29/22 [History Last Taken 03/17/23] cholecalciferol (vitamin D3) 50 mcg (2,000 unit) capsule 50 mcg PO DAILY 08/29/22 [History Last Taken 03/18/23 17:23] vitamin E mixed 400 unit capsule unit PO DAILY 08/29/22 [History Last Taken 03/18/23 17:21] BD Ultra-Fine Helen Pen Needle 32 gauge x 5/32 (pen needle, diabetic) #100 ea 11/28/22 [Rx Last Taken Unknown] alpha lipoic acid 600 mg capsule 600 mg PO DAILY 11/28/22 [History Last Taken 03/18/23 17:22] hydroxychloroquine 200 mg tablet (Plaquenil) 200 mg PO BID 11/28/22 [History Last Taken 03/18/23 17:23] metformin 1,000 mg tablet 1,000 mg PO BID diabetes #180 tabs 12/27/22 [Rx Last Taken 03/18/23 05:23] vit B complex with C-folic acid 5 mg-copper 1.5 mg-zinc 25 mg tablet (Folbee Plus) 1 tab PO DAILY #90 tabs 02/15/23 [Rx Last Taken 03/18/23 17:21] insulin aspart U-100 100 unit/mL (3 mL) subcutaneous pen (Novolog FlexPen U-100 Insulin aspart) 28 unit (0.28 mL) subcut TID diabetes #30 mL 03/07/23 [Rx Last Taken 03/18/23 19:20] Allergy/AdvReac Type Severity Reaction Status Date / Time amoxicillin [Amoxicillin] Allergy Hives Verified 03/19/23 05:15 Penicillins Allergy Hives Verified 03/19/23 05:15 Family History Mother Diabetes Father Hypertension Surgical History History of section (~2013) History of dilation and curettage Hx laparoscopic cholecystectomy Social History adopted: No household members: spouse and children housing: house number of children: 3 current occupational status: employed 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 [employer] current occupational exposures/hazards: No pets and animals: Yes (not managing litterbox) pets and animals: cat(s) and dog(s) history of recent travel: No sexually active: Yes Smoking Status: Never smoker alcohol intake: never substance use type: does not use well-balanced diet: daily or most days caffeine: Yes Type: coffee Number of servings: 1 eating out: 1-3 times/week during the past year weight has: decreased > 10 lbs what type of physical activity do you participate in: walking and weight training frequency: 3-4 times per week duration: 45-60 minutes/day naldo/baptist: Scientologist seatbelt use: always do you feel safe at home: Yes additional social history: [employer] Patient works for [employer] History 10 Elective abortions Hx Para 3 Spontaneous abortions 5 Hx # Term Pregnancies Ectopic pregnancies Hx # Pregnancies Multiple births # of living children 3 Past Pregnancies Del. Date Name GA/Weeks Outcome Route Bth Weight Gen Labor Lgth Anesthesia Del Locatn Provider FOB Unknown 2010 Miles 39 live - full term 7lbs 2oz [facility] Dr. Ferro Unknown 2013 Sudeep 39 live - full term 7lbs 4oz Mal e [facility] Len Aleman Unknown 2021- September spontaneous Male Unknown April 2021 spontaneous Unknown May 2021 spontaneous Unknown June 2021 spontaneous 02/05/19 Mamadou 39 live - full term 7lbs 2oz Male [facility] CARMELITA 01/19/22 miscarriage @ 12 weeks Delivery Date: Last Updated by: Francoise Adams distress- emergency c/s Delivery Date: Last Updated by: Francoise Adams scheduled c/s Delivery Date: Last Updated by: Francoise Ly D&C, Anora testing confirmed normal male Visit Details Expected Delivery Route/Plan RLTCS Plans Covid status: declined Flu vaccine:given Tdap vaccine:given Rhogam: na LARC form signed: declined movement and labor precautions reviewed. Problem list reviewed and updated with the most current plan of care details and appropriate orders placed. Relevant counseling for the gestational age provided. Continue routine care and follow up unless otherwise noted in visit notes/problem list details OB Flowsheet Initial Weight: Not Recorded Date -?-?-?-?-?-?-?-?-?-?-?-?- EGA Weight BP Urine Prot -?-?-?-?-?-?-?-?-?-?-?-?- Glucose FHR FuHt Pres Dilation -?-?-?-?-?-?-?-?-?-?-?-?- Effaced St Visit Note 08/29/22 -?-?-?-?-?-?-?-?-?-?-?-?- 9w 1d 219 lb 2 oz 135/76 -?-?-?-?-?-?-?-?-?-?-?-?- 179 -?-?-?-?-?-?-?-?-?-?-?-?- JV- single live IUP measuring 9 weeks 1 day. pt has been getting weekly ultrasounds. this is recommended to be continued until at least 14 weeks due to h/o 12 week loss. She is on metfomin, lovenox, asa, progesterone, plaquanil, prednisone for likely the remainder of the . 09/06/22 -?-?-?-?-?-?-?-?-?-?-?-?- 10w 2d 218 lb 4 oz 130/86 Nega tive -?-?-?-?-?-?-?-?-?-?-?-?- Negative 180 -?-?-?-?-?-?-?-?-?-?-?-?- JV- feeling well today. ordering labs including NIPT. 09/18/22 -?-?-?--?-?-?-?-?-?-?-?-?- 12w 0d 221 lb 132/84 Negative -?-?-?-?-?-?-?-?-?-?-?-?- Negative 153 -?-?-?-?-?-?-?-?-?-?-?-?- JV- good h eart tones and measurements today. obtaining a hga1c and referring to Dr. castellano due to 2 hr pp of 150. she will be done with prednisone at 18 weeks and may change her course of insulin. she is on 100 bid of metformin. 09/26/22 -?-?-?-?-?-?-?-?-?-?-?-?- 13w 1d 221 lb 4 oz 129/84 Nega tive -?-?-?-?-?-?-?-?-?-?-?-?- Negative 150 -?-?-?-?-?-?-?-?-?-?-?-?- JV- on prednison e until 19 weeks then will be doing a taper. sees dr. castellano who has her on insulin until prednisone taper is completed. still on metformin. 10/12/22 -?-?-?-?-?-?-?-?-?-?-?-?- 15w 3d 221 lb 139/84 Negative -?-?-?-?-?-?-?-?-?-?-?-?- Negative 150 -?-?-?-?-?-?-?-?-?-?-?-?- SM- no vb crampi ng 10/19/22 -?-?-?-?-?-?-?-?-?-?-?-?- 16w 3d 223 lb 6 oz 120/78 -?-?-?-?-?-?-?-?-?-?-?-?- 145 -?-?-?-?-?-?-?-?-?-?-?-?- SM- no vb crampi ng 10/25/22 -?-?-?-?-?-?-?-?-?-?-?-?- 17w 2d 223 lb 2 oz 136/80 1+ -?-?-?-?-?-?-?-?-?-?-?-?- Negative -?-?-?-?-?-?-?-?-?-?-?-?- JV- bedside hand held ultrasound performed and + FM and heart tones visualized. pt to have formal scan 11/08. 11/01/22 -?-?-?-?-?-?-?-?-?-?-?-?- 18w 2d 225 lb 136/80 Negative -?-?-?-?-?-?-?-?-?-?-?-?- Negative 150 -?-?-?-?-?-?-?-?-?-?-?-?- JV- pt reassured about heart tones. pt had [facility] work [facility] and her pt, inr, and ptt were low or low normal. increasing her lovenox based one weight but we discussed that if anything lovenox would only cause increase in x a levels. will consult hemonc. 11/07/22 -?-?-?-?-?-?-?-?-?-?-?-?- 19w 1d 223 lb 8 oz 124/78 Nega tive -?-?-?-?-?-?-?-?-?-?-?-?- Negative 156 -?-?-?-?-?-?-?-?-?-?-?-?- JV- no lof, vagi nal bleeding, or cramping. starting to feel some movement but not consistent. has anatomy scan tomorrow. still wants to come q 1 week. 11/13/22 -?-?--?-?-?-?-?-?-?-?-?-?- 20w 0d 225 lb 2 oz 123/81 Trac e -?-?-?-?-?-?-?-?-?-?-?-?- Negative 150 20 -?-?-?-?-?-?-?-?-?-?-?-?- KW-no lof/vb/wallpaper scraper mping. Positive flutters. 11/22/22 -?-?-?-?-?-?-?-?-?-?-?-?- 21w 2d 224 lb 123/85 Negative -?-?-?-?-?-?-?-?-?-?-?-?- Negative 135 22 -?-?--?-?-?-?-?-?-?-?-?-?- JV- no cramping or bleeding. wants to continue coming weekly for a little longer. has all ultrasounds scheduled. 11/29/22 -?-?-?-?-?-?-?-?-?-?-?-?- 22w 2d 226 lb 6 oz 136/84 Nega tive -?-?-?-?-?-?-?-?-?-?-?-?- Negative 155 -?-?-?-?-?-?-?-?-?-?-?-?- JV- pt saw phil c yesterday for some clarification about some abnormal clotting factors. tests repeated however it seems they were unsure what to do with her. pt reassured today. rto next week. 12/07/22 -?-?-?-?-?-?-?-?-?-?-?-?- 23w 3d 226 lb 115/66 Negative -?-?-?-?-?-?-?-?-?-?-?-?- Negative 153 24 -?-?-?-?-?-?-?-?-?-?-?-?- JV- saw hemonc a nd plan to do rpt labs after delivery. pt feels good today an feeling movemnt. 12/19/22 -?-?-?-?-?-?-?-?-?-?-?-?- 25w 1d 229 lb 8 oz 122/85 Nega tive -?-?-?-?-?-?-?-?-?-?-?-?- Negative 162 29 -?-?-?-?-?-?-?-?-?-?-?-?- JV- no lof, vagi nal bleeding or dec fm. insulin increased to 14 to lower fasting levels. current fasting levels are in the 90's 12/31/22 -?-?-?-?-?-?-?-?-?-?-?-?- 26w 6d 226 lb 118/80 -?-?-?-?-?-?-?-?-?-?-?-?- 150 29 -?-?-?-?-?-?-?-?-?-?-?-?- SM- no vb lof go od fm no regular ctx 01/10/23 -?-?-?-?-?-?-?-?-?-?-?-?- 28w 2d 230 lb 4 oz 108/82 -?-?-?-?-?-?-?-?-?-?-?-?- 140 28 -?-?-?-?-?-?-?-?-?-?-?-?- SM- insulin incr eased per dr, no vb lof good fm n oregular ctx 01/15/23 -?-?-?-?-?-?-?-?-?-?-?-?- 29w 0d 228 lb 8 oz 128/68 Nega tive -?-?-?-?-?-?-?-?--?-?-?-?- Negative 156 31 0 -?-?-?-?-?-?-?-?-?-?-?-?- JV- just increas ed Humalog to 22 units with lunch and dinner. pink discharge today reported. on exam no signs of PTL or bleeding. culture collected. 01/22/23 -?-?-?-?-?-?-?-?-?-?-?-?- 30w 0d 230 lb 110/61 -?-?-?-?-?-?-?-?-?-?-?-?- 145 32 -?-?-?-?-?-?-?-?-?-?-?-?- SM- no vb lof go od fm n regular ctx BS controlled. 01/28/23 -?-?-?-?-?-?-?-?-?-?-?-?- 30w 6d 228 lb 4 oz 109/66 109/66 1+ -?-?-?-?-?-?-?-?-?-?-?-?- Negative 145 -?-?-?-?-?-?-?-?-?-?-?-?- SM- larc signed no vb lof good fm no regular ctx BS fairly controlled. worsening reflux 02/04/23 -?-?-?-?-?-?-?-?-?-?-?-?- 31w 6d 228 lb 4 oz 123/76 Nega tive -?-?-?-?-?-?-?-?-?-?-?-?- Negative 140 32 -?-?-?-?-?-?-?-?-?-?-?-?- jV- reactive NSt today. glucose log reviewed 02/11/23 -?-?-?-?-?-?-?-?-?-?-?-?- 32w 6d 231 lb 8 oz 118/76 -?-?-?-?-?-?-?-?-?-?-?-?- 140 34 -?-?-?-?-?-?-?-?-?-?-?-?- SM- insulin adju sted. no vb lof good fm n oregular ctx 02/18/23 -?-?-?-?-?-?-?-?-?-?-?-?- 33w 6d 231 lb 6 oz 114/79 Nega tive -?-?-?-?-?-?-?-?-?-?-?-?- Negative 140 -?-?-?-?-?-?-?-?-?-?-?-?- JV- normal growt h scan on 02/14. (47th%) bpp was 11/06. NST today reactive. 02/25/23 -?-?-?-?-?-?-?-?-?-?-?-?- 34w 6d 230 lb 8 oz 124/81 Trac e -?-?-?-?-?-?-?-?-?-?-?-?- Negative 150 -?-?-?-?-?-?-?-?-?-?-?-?- JV- NST reactive . had to increase glucose again. if continues to need adjusted with suboptimal glucose levels, may consider delivery at 38 weeks 03/04/23 -?-?-?-?-?-?-?-?-?-?-?-?- 35w 6d 233 lb 8 oz 130/84 Nega tive -?-?-?-?-?-?-?-?-?-?-?-?- Negative 145 36 -?-?-?-?-?-?-?-?-?-?-?-?- JV- NST reactive . gbs next visit. insulin is being changed depending on what she eats. fastings are from 60-100's. 03/11/23 -?-?-?-?-?-?-?-?-?-?-?-?- 36w 6d 235 lb 122/80 -?-?-?-?-?-?-?-?-?-?-?-?- 140 37 Cephalic 0 -?-?-?-?-?-?-?-?-?-?-?-?- SM- no vb lof go od fm discussed insulin increased again, gbs done. discussed recommend delivery at 38 weeks. 03/18/23 -?-?-?-?-?-?-?-?-?-?-?-?- 37w 6d 236 lb 2 oz 123/83 Nega tive -?-?-?-?-?-?-?-?-?-?-?-?- Negative 130 -?-?-?-?-?-?-?-?-?-?-?-?- SM- no vb lof go od fm no regular ctx NST FHR Rate Baby A Baseline: 130 ROS Constitutional Constitutional: Reports systems reviewed and no addt'l complaints, except as documented Eyes Eyes: Denies change in vision ENT HEENT: Reports systems reviewed and no addt'l complaints, except as documented; Denies headache(s) Cardiovascular Cardiovascular: Reports systems reviewed and no addt'l complaints, except as documented; Denies chest pain or dyspnea Respiratory/Chest Respiratory/Chest: Reports systems reviewed and no addt'l complaints, except as documented Gastrointestinal Gastrointestinal: Reports systems reviewed and no addt'l complaints, except as documented; Denies abdominal pain Genitourinary Genitourinary: Reports systems reviewed and no addt'l complaints, except as documented, contractions Details: present (irregular) and movement Details: present; Denies dysuria or genital lesions Musculoskeletal Musculoskeletal: Reports systems reviewed and no addt'l complaints, except as documented Neurologic Neurologic: Reports systems reviewed and no addt'l complaints, except as documented Endocrine Endocrinology: Reports systems reviewed and no addt'l complaints, except as documented Vital Signs Vital Signs Vital Signs: 03/19/23 05:20 03/19/23 05:20 03/19/23 05:20 Temperature Temperature Source Pulse Rate 102 H Respiratory Rate Blood Pressure 122/74 H Blood Pressure Mean BP Systolic 122 BP Diastolic 74 Blood Pressure Source Blood Pressure Position Blood Pressure Location Pulse Ox 98 Oxygen Delivery Method 03/19/23 05:20 03/19/23 05:20 03/19/23 05:45 Temperature 97.7 F L 97.7 F L Temperature Source Temporal Temporal Pulse Rate 100 Respiratory Rate 16 Blood Pressure 122/74 H Blood Pressure Mean 90 BP Systolic BP Diastolic Blood Pressure Source Monitor Blood Pressure Position Semi-Fowlers Blood Pressure Location Right Arm Pulse Ox 98 Oxygen Delivery Method Room Air Weight Weight: 236 lb 2 oz Body Mass Index (BMI) 41.8 Physical Exam Const alert, oriented x3, no apparent distress and healthy appearing HEENT normocephalic and moist oral mucous membranes Head and Scalp: atraumatic Neck full ROM, no lymphadenopathy, supple and thyroid normal General: trachea midline Lymph Lymphatic: no lymphadenopathy noted Chest inspection of chest normal Resp normal respiratory effort Cardio regular rate GI normal to inspection, nondistended, normoactive bowel sounds, soft to palpation and non-tender Inspection: gravid external exam normal Manual OB Exam: estimated gestational size appropriate, presentation cephalic, dilated, effaced and station Extremity normal to inspection General Extremity: Negative for edema Skin no rashes or lesions noted Neuro no focal motor deficits and deep tendon reflexes 2+ bilaterally Motor Exam: strength 5/5 throughout and clonus absent Psych mental status grossly normal Labs Labs Labs: Blood Type AB POSITIVE Antibody Screen NEGATIVE Hct 37.3 % (37-47) Hgb 11.8 g/dL (12.0-15.0) L Obstetrics Ultrasound Syphilis Total Ab Non-reactive Rubella IgG Antibody Reactive (Nonreactive) Hep Bs Antigen Non-Reactive (Nonreactive) Hepatitis C Antibody Non-Reactive (Nonreactive) Chlamydia DNA (ROSANNE) Negative (Negative) N.gonorrhoeae DNA (ROSANNE) Negative (Negative) HIV 1&2 Antibody Non-Reactive (Nonreactive) Glucose 1 Hr 50 gm 144 mg/dL (70-140) H Gest Glucose Tolerance MG/DL Group B Strep DNA Negative (Negative) Rhogam given: No Miscellaneous Test Assessment & Plan (1) Pre-existing diabetes mellitus during : COMMENT: insulin with lunch and dinner, metformin. serial growths q 4 weeks, testing starting 34 weeks, increasing insulin needs every week recommend delivery by 38 weeks now due to difficult control (2) Abnormal coagulation profile: COMMENT: Pt/Ptt was done at [facility] last month. Discussed repeating test here in [place], Pt agreed. PT/PTT on 11/28/2022 was normal. FARZAD and DS DNA antibodies are normal. Pt wants to be tested for Protein S/C deficiency, Protein Z deficiency. I offered to repeat PT/PTT repeated, she declined and said her Curing Room Worker is doing it frequently but she is not able to show me recent labs. She walked out of the clinic. on lovenox. (3) Lupus: COMMENT: Double stranded DNA + being worked up for lupus. on prednisone first half of . negative ro and la in third trimester (4) Obesity affecting : (5) History of gestational diabetes: COMMENT: insulin and metformin, susana castellano, twice weekly nsts at 32, growth us q 4 weeks (6) History of : COMMENT: RLTCS BS scheduled for 03/19 @ 7:30 with SM (7) : QUALIFIERS: Weeks of gestation: 37 weeks Qualified Code(s): Z3A.37 - 37 weeks gestation of COMMENT: gbs neg. Panorama low risk, gender female, nl first trimester US and 15 week US, Neg. AFP nl anatomy (8) Supervision of high risk multigravida in first trimester in patient 35 years or older at time of delivery: COMMENT: PRR ISACC 04/02/23 girl Amita sudeep Bennett grant (9) History of recurrent miscarriages: COMMENT: RGI and MFM consult for HSG or SIS and additional workup/intervention, 01/24 Negative APL repeated, Metformin ER 500mg daily, progesterone with next luteal phase to 14 wks (starting after times intercourse) Check TSH and FT4 in and if TSH >2.5 start synthroid 25mcg daily HOLDING LOVENOX DUE TO PRESENCE OF INTRAMNIOTIC CLOT SITTING ABOVE THE CERVIX. RPT ULTRASOUND AT 28 WEEKS. PLAN: Plan plan RLTCS and BS
--- NOTE | 2023-03-19 06:59 | EX.PCM.OBRPT ---
Assessment & Plan (1) Pre-existing diabetes mellitus during : COMMENT: increasing insulin needs- plan delivery at 38 due to poor control. insulin with lunch and dinner, metformin. serial growths q 4 weeks, testing starting 34 weeks, increasing insulin needs every week recommend delivery by 38 weeks now due to difficult control (2) Abnormal coagulation profile: COMMENT: Pt/Ptt was done at [facility] last month. Discussed repeating test here in [place], Pt agreed. PT/PTT on 11/28/2022 was normal. FARZAD and DS DNA antibodies are normal. Pt wants to be tested for Protein S/C deficiency, Protein Z deficiency. I offered to repeat PT/PTT repeated, she declined and said her Electrical Development Engineer is doing it frequently but she is not able to show me recent labs. She walked out of the clinic. on lovenox. (3) Lupus: COMMENT: Double stranded DNA + being worked up for lupus. on prednisone first half of . negative ro and la in third trimester (4) Obesity affecting : (5) History of gestational diabetes: COMMENT: insulin and metformin, susana castellano, twice weekly nsts at 32, growth us q 4 weeks (6) History of : COMMENT: RLTCS BS scheduled for 03/19 @ 7:30 with (7) : QUALIFIERS: Weeks of gestation: 37 weeks Qualified Code(s): Z3A.37 - 37 weeks gestation of COMMENT: gbs neg. Panorama low risk, gender female, nl first trimester US and 15 week US, Neg. AFP nl anatomy (8) Supervision of high risk multigravida in first trimester in patient 35 years or older at time of delivery: COMMENT: PRR ISACC 04/02/23 girl Amita sudeep Bennett grant (9) History of recurrent miscarriages: COMMENT: RGI and MFM consult for HSG or SIS and additional workup/intervention, 01/24 Negative APL repeated, Metformin ER 500mg daily, progesterone with next luteal phase to 14 wks (starting after times intercourse) Check TSH and FT4 in and if TSH >2.5 start synthroid 25mcg daily HOLDING LOVENOX DUE TO PRESENCE OF INTRAMNIOTIC CLOT SITTING ABOVE THE CERVIX. RPT ULTRASOUND AT 28 WEEKS. 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 Spinal anesthesia was placed without difficulty. Murphy catheter was placed. The patient was placed in the dorsal supine position with leftward tilt. Patient was prepped and draped in the normal sterile fashion. Pfannenstiel skin incision was made with the scalpel and carried through to the underlying layer of fascia with the scalpel. Fascia was nicked in the midline and the incision extended laterally. The rectus bellies were dissected off superiorly and inferiorly with out complication both sharply and bluntly. The peritoneum was entered digitally. The incision was stretched and a low transverse uterine incision was made with the scalpel. The 's head was delivered atraumatically followed by the anterior and posterior shoulders without complication the rest of the infant delivered. The cord was clamped and cut and the was handed off to awaiting nurse. The placenta was delivered spontaneously immediately following and was noted to be intact and have a three-vessel cord. The uterus was exteriorized cleared of all clots and debris, and the incision was closed in a single layer closure using #1 Monocryl. Patient had desired sterilization and was counseled preoperatively regarding irreversibility and permanency. Therefore bilateral fallopian tubes were elevated and transected across using a LigaSure device starting proximally to distally without complication the entire fallopian tubes were removed. The ovaries and fallopian tubes were noted to be within normal limits. The uterus was returned to the maternal abdomen and gutters were cleared of all clots and debris. The peritoneum was closed with 3-0 Monocryl in a running fashion. Fascia was closed with 0 PDS in a running fashion. Subcutaneous tissue was copiously irrigated and the skin was closed with 3-0 Monocryl in a subcuticular fashion. Mepilex dressing was applied without complication. Patient was taken to recovery in stable condition. Amniotic Membrane Rupture Type: Artificial Amniotic Fluid Description: Clear Placenta Disposition: [facility] Cord Vessel Description: 3 Vessels Delayed Cord Clamping: Yes Complications Risks of Surgery Discussed w/Patient: Bleeding, Infection, Need for Future C-Sections and Injury to surrounding structure(s) including bowel and bladder Vaginal Delivery Complication Complications: None Admit VTE Documentation VTE Present on Admission: No VTE Mechan Device Prophylaxis: SCD's Procedures Urinary/Genital 52xxx-[id number]: 22363 Delivery global pkg Multi Select Codes Urinary/Genital Urinary/Genital CPT Codes: 77531 C/S+TL (bilateral salpingectomy) and 88397 Delivery global pkg
--- NOTE | 2023-03-19 07:04 | DCINST_ITS ---
Discharge Instructions Diet Discharge Diet: No restrictions Activity Discharge Activity: May Not Drive (for 2 weeks or while taking narcotic pain medications.), May Shower and May Take a Tub Bath (in 7 days) May shower in (days): 0 May resume sexual activity in: 4-6 weeks Weight Bearing Status: Full weight bearing Lifting Restrictions: 20 pounds Dressing / Incision Call your doctor if your incision/area has: Continuous Slow Oozing, Sudden Increased Bleeding, Increased Pain/ Swelling, Increased Redness and Foul Smelling Discharge Call your doctor if you observe: Fever of 101 or Higher and Using more than 1 pad per hour (for 2 hours) Suture Line Care: Avoid Pulling/Pushing and Avoid Pinching/Bending Cleanse incision/area with: Soap & Water and Keep Dressing Clean & Dry Follow Up Care Please Follow Up With: Dixie Swan MD When: Call [phone] to make an appointment for an incision check in 1-2 weeks. Test Results: Test results from this visit will be discussed in further detail at your follow- up appointment, if applicable. Discharge Plan Admission Admit Date/Time: 03/19/23 05:10 Attending Provider: Dixie Swan Primary Care Provider: Gary Stevens Discharge Orders/Prescriptions Prescriptions: New oxycodone-acetaminophen [Percocet] 5-325 mg tablet 1 tab PO Q6H PRN (Reason: pain) 7 Days Qty: 10 0RF naproxen [naproxen] 500 mg tablet 500 mg PO BID PRN PRN (Reason: Pain) Qty: 30 1RF No Action aspirin 81 mg tablet,delayed release (DR/EC) 162 mg PO DAILY cholecalciferol (vitamin D3) 50 mcg (2,000 unit) capsule 50 mcg PO DAILY vitamin E mixed 400 unit capsule PO DAILY hydroxychloroquine [Plaquenil] 200 mg tablet 200 mg PO BID alpha lipoic acid 600 mg capsule 600 mg PO DAILY (DME) pen needle, diabetic [BD Ultra-Fine Helen Pen Needle] 32 gauge x 5/32 needle See Rx Instructions .ROUTE .MEDSUPPLY Qty: 100 3RF Rx Instructions: As directed metformin 1,000 mg tablet 1,000 mg PO BID Qty: 180 1RF Folbee Plus 5-1.5-25 mg tablet 1 tab PO DAILY Qty: 90 6RF Rx Instructions: administer between meals insulin aspart U-100 [Novolog FlexPen U-100 Insulin] 100 unit/mL (3 mL) insulin pen 28 unit subcut TID Qty: 30 3RF Referrals / Follow Up: Gary Stevens MD [Primary Care Provider] - Disposition Disposition (needs filled in before D/C Order can be placed): Home, Self Care
[2023-03-19] MEDS: Clindamycin 900 MG/50 ML BAG 75 MG IV (07:33)
[2023-03-19] MEDS: Gentamicin IV 260 MG in Dextrose 5%-Water (50mL Bag) 50 ML 100 MG IVPB (07:50)
--- NOTE | 2023-03-19 07:52 | FALS_PTH ---
PATIENT: MITCHELL CONNER LOC: [facility] U#:[id number] AGE/SX: 37/F [facility] RE03/19/[address]: Dr. Dixie Swan MD : 1985 BED: 1 DIS: 03/20/2023 SPEC #: [id number] RECD: 03/19/23 11:40 STATUS: AUDI MCWILLIAMS #: [id number] GABRIELA: 03/19/23 07:[address]: Dixie Swan DEPT: SURGICAL PATHOLOGY RECD BY: Kylie Gomez ENTERED: 03/19/23 12:05 SP TYPE: FALL TUBES OTHR DR: Dr. Gary Stevens MD Tissues: Fallopian tube Procedures: Surgery Specimen Level IV HEADER OPERATION: Tubal ligation PRE-OP DIAGNOSIS: Sterilization TISSUE SUBMITTED: Fallopian tubes, suture around right tube MICROSCOPIC DIAGNOSIS Right fallopian tube, salpingectomy: Benign paratubal cysts. Left fallopian tube, salpingectomy: Benign paratubal cyst. AM:josefina 03/20/2023 MICROSCOPIC DESCRIPTION Slides are reviewed. GROSS DESCRIPTION Received in fixative is one container labeled with the patient's name and designated bilateral fallopian tubes, right with stitch. The specimen consists of bilateral fallopian tubes including fimbrial ends. The right fallopian tube identified by a stitch measures 8.0 cm in length and 0.6 cm in diameter. Four paratubal cysts are identified measuring 0.3 to 1.0 cm in greatest dimension. Sections reveal unremarkable cut surfaces. The left fallopian tube measures 7.5 cm in length and 0.7 cm in diameter. Two paratubal cysts are noted measuring 0.3 and 0.5 cm in greatest dimension. Sections reveal unremarkable cut surfaces. Senior Technical Specialist sections are submitted in two cassettes as follows: 1 - right fallopian tube and paratubal cyst, 2 - left fallopian tube and paratubal cyst. / SJ:josefina 03/19/2023 TC:5 CPT: 58183 x2
[2023-03-19 08:31] LABS: Syphilis Antibodies Non-reactive
[2023-03-19] MEDS: Oxytocin 15 Units/NS 250ml 15 UNITS/250 ML IV.SOLN 83 UNITS IV (08:38)
[2023-03-19] MEDS: Ketorolac 30 MG/ML Syringe IV ×3 (09:28→20:20)
[2023-03-19 09:48] LABS: Bedside Glucose 102 mg/dL (74-106)
[2023-03-19] MEDS: Lactated Ringers 1,000 ML 100 ML IV (11:44)
--- NOTE | 2023-03-19 12:22 | NURSING ---
Report given to LA Guy.
[2023-03-19 17:36] LABS: Bedside Glucose 74 mg/dL (74-106)
[2023-03-19] MEDS: Enoxaparin 40 MG/0.4 ML Syringe SC (20:19)
[2023-03-19] MEDS: 0.9% Saline Lock 10 ML Syringe IV (20:20)
[2023-03-20] VITALS (8 sets, daily range): BP systolic 113–132; BP diastolic 73–94; PULSE 88–110; RESP 16–20; TEMP 36.1–36.7; O2SAT 96–98
[2023-03-20] MEDS: Acetaminophen 500 MG Tablet 1000 MG PO ×2 (00:35→06:28)
[2023-03-20] MEDS: Ketorolac 30 MG/ML Syringe IV (02:12)
[2023-03-20] MEDS: 0.9% Saline Lock 10 ML Syringe IV (02:12)
[2023-03-20 05:30] LABS: Hematocrit 32.1 % (37-47); Hemoglobin 10.2 g/dL (12.0-15.0); Mean Corp Hgb Conc 31.8 g/dL (32-36); Mean Corpuscular Hgb 27.4 pg (27.0-32.0); Mean Corpuscular Volume 86.3 fL (81-99); Platelet Count 156 K/mm3 (150-450); RBC Distribution Width CV 13.8 % (11.6-14.6); RBC Distribution Width SD 42.9 fl (35.1-43.9); Red Blood Count 3.72 M/mm3 (4.2-5.4); White Blood Count 8.3 K/mm3 (4.4-11.0)
[2023-03-20 06:07] LABS: Bedside Glucose 126 mg/dL (74-106)
--- NOTE | 2023-03-20 07:56 | PCM.PN.OB ---
Subjective Subjective Patient doing well without complaints. Tolerating PO. Ambulating and voiding without difficulty. Feeding well. Denies chest pain, shortness of breath, calf pain/swelling, fevers, chills, lightheadedness. Objective Data Objective Data Vital Signs: Vital Signs Temp Pulse Resp BP Pulse Ox O2 Del Method 97 F L 88 16 132/94 H 98 Room Air 03/20/23 07:44 03/20/23 07:44 03/20/23 07:44 03/20/23 07:44 03/20/23 07:44 03/20/23 07:44 Oxygen Delivery Method Room Air Weight: 236 lb 2 oz Body Mass Index (BMI) 41.8 Intake & Output: Intake and Output for Last 24 Hours 03/18/23 03/19/23 03/20/23 23:59 23:59 23:59 Intake Total 3600.67 / 3600.67 Output Total 865 / 865 860 / 860 Balance 2735.67 / 2735.67 -860 / -860 Lab / Micro Data 03/20/23 05:25 Labs: Laboratory Results - last 24 hr 03/19/23 05:25: Syphilis Total Ab Non-reactive 03/19/23 09:03: POC Glucose 102 03/19/23 17:13: POC Glucose 74 03/20/23 00:24: POC Glucose 126 H 03/20/23 05:25: WBC 8.3, RBC 3.72 L, Hgb 10.2 L, Hct 32.1 L, MCV 86.3, MCH 27.4, MCHC 31.8 L, RDW Std Deviation 42.9, RDW Coeff of Corey 13.8, Plt Count 156, MPV 11.0 Physical Exam Const alert and oriented x3 HEENT normocephalic Eyes PERRL Neck full ROM Resp normal respiratory effort GI soft to palpation GI Narrative: FF below U. Dressing dry and intact Palpation: tender other (appropriately) Assessment & Plan (1) delivery delivered: COMMENT: ARVIND RLTCS BS girl Amita 38 GDM (2) Pre-existing diabetes mellitus during : QUALIFIERS: Trimester: unspecified trimester Qualified Code(s): O24.319 - Unspecified pre-existing diabetes mellitus in , unspecified trimester COMMENT: increasing insulin needs- plan delivery at 38 due to poor control. insulin with lunch and dinner, metformin. serial growths q 4 weeks, testing starting 34 weeks, increasing insulin needs every week recommend delivery by 38 weeks now due to difficult control PLAN: Plan s/p LTCS PPD # 1 1. routine post care 2. breast feeding- support given 3. rh positive 4. rubella immune 5. glucose well controlled 6. plans home today
[2023-03-20] MEDS: Enoxaparin 40 MG/0.4 ML Syringe SC (08:32)
[2023-03-20] MEDS: Naproxen 500 MG Tablet PO (08:32)
[2023-03-20] MEDS: Senna/Docusate Sodium 1 Tablet PO (10:52)
[2023-03-20 12:17] LABS: Bedside Glucose 80 mg/dL (74-106)
--- NOTE | 2023-03-20 16:15 | CASEMGMT ---
Social Work Assessment Labor and Delivery Unit Patient Address: [address] [place] [address] [address], [place] [address] Phone number: [phone] Date of Referral:03/19/23 Time of Referral:? 528 Referred By: Dixei Swan Date of Intervention: ??03/20/23 Time of Intervention:? 1200 Reason for Referral:? father of patient former alcoholic Sw completed chart review and acknowledges social work consult due to mother of baby (ZORA- Melida) having a father who was formerly an alcoholic. Sw presented to bedside and introduced self to MOB and Father of baby (FOB- Devang). Parents had their oldest son also at bedside, Cloe, and stated that it was ok to complete assessment with him present. Sw completed psychosocial assessment, provided support and literature for parents to review. History obtained from: medical records, MOB and FOB Household composition: Currently residing in the home is MARII BLAKELY, their three older sons (Cole, 12 y/o, Pierre, 9y/o, Mamadou, 4y/o) and now baby. Patient's parent/guardian status:? ?Parents state that they have been together for 19 years after meeting while working together at [employer]. No concerns at this time regarding domestic violence or intimate partner violence. Medical History: ?ZORA is 37 year old female who is 10, para 3- now 4 following labor and delivery of . ZORA received routine care during with [facility]. ZORA delivered baby via repeat caesarian delivery on 03/19/23 at 38 weeks gestation. Baby girl, named Amita Dobson was born requiring some respiratory support, her apgars were 8 and 8 at one and five minutes of life respectfully. Baby will be followed by Dr. Ng for pediatrics. ZORA states that she is and it is going well, she has a pump for home. Educational Status:? Both parents obtained Bachelors degrees. No concerns with reading, learning or comprehension. Financial Status: MARII is employed outside of the home with [employer]. ZORA works for [employer], both parents are able to take time off of work now that baby has been born. Infant Supplies:?? Parents report that they have obtained all necessary baby supplies, including: car seat, safe sleep space, clothes, diapers and wipes Childcare/Caregiver(s):? 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 Transportation:??Both parents have their drivers license and reliable means of transportation. No transportation barriers at this time. Programs/Agencies Involved: ??Parents deny linkage to any community resources at this time. ? Children Services/Legal Issues: No history of involvement, no issues or concerns warranting a referral to be made at this time. ??? Behavioral Health Issues: ??Mental Health History:??FOB and MOB deny any mental health diagnoses at this time. ? Substance Use History:??MOB denies substance use prior to and during . Family History:??MOB states that her father has a history of alcoholism but has been sober now for 12 years. ??? Drug Screens: No urine screens observed during . ?? Family/Social Stressors:? Parents deny any issues or concerns at this time. Support Systems: Parents state that they have a lot of friends and family who are supportive. Depression/Shaken Baby/Safe Sleeping:? Sw provided education and literature educating parents on signs and symptoms of baby blues, depression and anxiety. MOB stated that she has never experienced any of the mentioned. FOB stated that if MOB were to struggle he believes that he would be able to recognize when she is struggling and would be able to provide support. Sw educated parents on shaken baby prevention and ABCs of safe sleep, parents and older brother expressed understanding. ASSESSMENT:? MOB and baby admitted following labor and delivery. MOB and FOB engaged in assessment with sw, answering questions together. Parents were open and receptive to sw involvement and support. Parents have obtained all necessary baby supplies and have adequate supports in place. PLAN:? MOB and baby to be discharged when medically ready. ?No other services requested or indicated. Calin Walters, [employer] HEAD, [employer] [employer]
[2023-03-22 09:05] LABS: Pathology Specimen OB SEE PATHOLOGY REPORT
== END 2023-03-20 12:30 | disposition home or self-care (01) | DRG 785 ==
PROVIDERS: Admitting Provider Obstetrics & Gynecology; PCP Family Medicine; Referring Provider Obstetrics & Gynecology; Visit Provider Obstetrics & Gynecology
PROC: 10D00Z1 Extraction of Products of Conception, Low, Open Approach (ICD-10-PCS; CPT 59514; principal; 2023-03-19 07:00)
DX: O24.32 Unspecified pre-existing diabetes mellitus in childbirth (principal); L93.2 Other local lupus erythematosus; O26.23 Pregnancy care for patient with recurrent pregnancy loss, third trimester; R79.1 Abnormal coagulation profile; Z79.84 Long term (current) use of oral hypoglycemic drugs; Z79.82 Long term (current) use of aspirin; Z37.0 Single live birth; Z3A.38 38 weeks gestation of pregnancy; O99.72 Diseases of the skin and subcutaneous tissue complicating childbirth; Z86.32 Personal history of gestational diabetes
CPT/HCPCS: 59025; 59050; 82962; 85025; 85027; 86780; 86850; 86900; 86901; 88302; 88305; 99221; J7120; A4216; G0378; J2405

== ENCOUNTER → 2024-05-26 | Outpatient (CLI) | payer BC, SELFPAY | END | disposition home or self-care (01) | PROVIDERS: PCP Family Medicine; Referring Provider Obstetrics & Gynecology; Visit Provider Obstetrics & Gynecology | DX: E28.2 Polycystic ovarian syndrome (principal) | CPT/HCPCS: 36415; 84443 ==